=== PATIENT | female | born 1950 | race Caucasian/White ===

== ENCOUNTER → 2022-08-19 09:15 | Outpatient (BNVA) | payer MEDICARE, SELFPAY | PROVIDERS: PCP Internal Medicine; Visit Provider Hospitalist | DX: R05.3 Chronic cough (principal); J84.9 Interstitial pulmonary disease, unspecified; R91.1 Solitary pulmonary nodule; J44.9 Chronic obstructive pulmonary disease, unspecified | CPT/HCPCS: 99202 ==

== ENCOUNTER 2022-08-31 10:13 | Outpatient (REF) | payer MEDICARE, SELFPAY ==
--- NOTE | ~2022-08-31 | CT_ITS ---
EXAMINATION: CT CHEST WITHOUT CONTRAST CLINICAL INFORMATION: Interstitial lung disease COMPARISON: None TECHNIQUE: Multidetector volumetric CT imaging of the chest was done. Axial MIP volume rendering provided. Sagittal and coronal reformatted images were obtained. This CT examination was performed using dose optimization techniques as appropriate, variously including the following: *Automated exposure control *Adjustment of mA and/or kV according to patient size (this includes techniques or standardized protocols for targeted exams where dose is matched to indication/reason for exam; i.e. extremities or head) *Use of iterative reconstruction technique DLP: 169 mGy-cm FINDINGS: LUNGS: There are increased peripheral or subpleural reticular markings and attenuation at the lung bases. There is mild traction bronchiolectasis. There is a 2 mm right upper lobe nodule axial image 48 series 13. There is a 3 mm peripheral or subpleural right upper lobe nodule adjacent to the minor fissure axial image 82 series 13. There is a 2 mm right middle lobe nodule axial image 100 series 13. There is a 3 mm peripheral or subpleural left lower lobe nodule axial image 121 series 13 MEDIASTINUM: The mediastinum is normal. CORONARY ARTERY CALCIFICATION: Moderate PLEURA: There is no pleural effusion. No pleural mass or thickening. AXILLA: No lymphadenopathy. UPPER ABDOMEN: Unremarkable. OSSEOUS STRUCTURES: There are degenerative changes of the spine. There are postsurgical changes to the left shoulder. CT/CT chest wo IV con IMPRESSION: 1. Mild interstitial lung disease. Small pulmonary nodules or micronodules, largest measuring 3 mm. Moderate coronary artery calcification. Fleischner guidelines were followed.
== END 2022-08-31 10:14 | disposition home or self-care (01) ==
LOC: HO.CT 10:13
PROVIDERS: PCP Student in an Organized Health Care Education/Training Program; Visit Provider Hospitalist
DX: R91.1 Solitary pulmonary nodule (principal); R05.3 Chronic cough; J84.9 Interstitial pulmonary disease, unspecified
CPT/HCPCS: 71250

== ENCOUNTER 2022-09-14 08:43 | Outpatient (REF) | payer MEDICARE, SELFPAY ==
--- NOTE | 2022-09-14 10:01 | PFT_ITS ---
INDICATION: Interstitial lung disease. SPIROMETRY: The FEV1 to FVC 90% with an FEV1 of 1.96 L which is 75% predicted, an FVC of 1.76 L which is 90% predicted. No significant response to bronchodilators noted. Maximum voluntary ventilation 96% predicted. LUNG VOLUMES: Total lung capacity 79% predicted. DIFFUSION CAPACITY: DLCO 56% predicted. COMPARISONS: None. INTERPRETATION: No obstructive ventilatory defect. No significant response to bronchodilators noted and normal maximum voluntary ventilation. The patient does have a restrictive ventilatory defect consistent with mild restrictive lung disease, likely secondary to the history of interstitial lung disease. In addition to that, there is a moderate diffusion impairment secondary to the underlying restriction. Clinical correlation is warranted. Aidan Evans MD MR/MODL / [id number]
== END 2022-09-14 08:44 | disposition home or self-care (01) ==
LOC: HO.RESP 08:43
PROVIDERS: PCP Student in an Organized Health Care Education/Training Program; Visit Provider Hospitalist
DX: J84.9 Interstitial pulmonary disease, unspecified (principal); R91.1 Solitary pulmonary nodule; R05.3 Chronic cough
CPT/HCPCS: 94060; 94727; 94729

== ENCOUNTER → 2022-09-30 09:12 | Outpatient (BNVA) | payer MEDICARE, SELFPAY | PROVIDERS: PCP Student in an Organized Health Care Education/Training Program; Visit Provider Hospitalist | DX: J84.9 Interstitial pulmonary disease, unspecified (principal); R91.1 Solitary pulmonary nodule; R05.3 Chronic cough | CPT/HCPCS: 99212 ==

== ENCOUNTER 2023-01-13 10:13 | Outpatient (REF) | payer MEDICARE, SELFPAY ==
--- NOTE | ~2023-01-13 | FL_ITS ---
EXAMINATION: FL BARIUM SWALLOW CLINICAL INFORMATION: K21.9 - Gastro-esophageal reflux disease without esophagitis COMPARISON: CT chest noncontrast 08/31/2022 TECHNIQUE: Barium swallow examination is performed using fluoroscopic evaluation in addition to multiple fluoroscopic spot views, including cine images during swallowing. The patient is imaged both upright and prone and using both thick and thin sulfate along with effervescent granules. Barium pill challenge also performed. Fluoroscopy time: 1.1 minutes DAP: 7.06 Gycm2 Images: 30 FINDINGS: Swallowing function is normal and there is no aspiration. The cervical esophagus has no web or diverticulum or stricture. The cervical thoracic junction appears normal. The thoracic esophagus shows normal motility with no obstruction, stricture, or ulceration. There is no hiatal hernia or reflux seen despite use of provocative maneuvers (prone Valsalva and water siphon test, respectively). A cursory view of the upper abdomen shows no gastric outlet obstruction. FL/FL barium swallow IMPRESSION: Normal study.
== END 2023-01-13 10:14 | disposition home or self-care (01) ==
LOC: HO.XRAY 10:13
PROVIDERS: PCP Student in an Organized Health Care Education/Training Program; Visit Provider Hospitalist
DX: K21.9 Gastro-esophageal reflux disease without esophagitis (principal); J84.9 Interstitial pulmonary disease, unspecified
CPT/HCPCS: 74220

== ENCOUNTER 2023-04-27 09:28 | Outpatient (REF) | payer MEDICARE, SELFPAY ==
--- NOTE | ~2023-04-27 | XR_ITS ---
EXAMINATION: XR CHEST 2 VIEWS CLINICAL INFORMATION: Cough. COMPARISON: Report of the chest radiographs dated 06/07/2015; CT chest dated 08/31/2022. TECHNIQUE: Frontal and lateral views of the chest were obtained. FINDINGS: The heart, great vessels, pulmonary vasculature and mediastinum are normal. There are again coronary artery atherosclerotic calcifications. The lungs show no focal infiltrate, effusion or pneumothorax. There is no acute osseous abnormality. There is multi-level thoracolumbar spondylosis. Orthopedic anchors are applied to the left humeral head. XR/XR chest 2V IMPRESSION: No focal infiltrate or congestive heart failure is seen.
[2023-04-27 10:52] LABS: MANUAL DIFF FLAG NO
[2023-04-27 11:27] LABS: Basophils Absolute Auto 0.1 X10*3/uL (0.0-0.2); Basophils Percent Auto 0.7 % (0-2); Eosinophils Absolute Auto 0.2 X10*3/uL (0.0-0.4); Eosinophils Percent Auto 2.2 % (0-4); Hematocrit 39.7 % (37.0-47.0); Hemoglobin 13.3 g/dl (12.0-16.0); Imm Gran Abs Auto 0.04 X10*3/uL (0.00-0.03); Imm Gran Pct Auto 0.5 % (0.0-0.4); Lymphocytes Percent Auto 24.7 % (20-40); Mean Corpuscular HGB Conc 33.5 g/dl (31.0-35.0); Mean Corpuscular Hemoglobin 30.2 pg (27.0-33.0); Mean Platelet Volume 10.2 fL (9.4-12.3); Monocytes Absolute Auto 0.9 X10*3/uL (0.1-1.2); Monocytes Percent Auto 10.8 % (2-11); Neutrophils Percent Auto 61.1 % (45-73); Platelet Count 190 X10*3/uL (160-400); Red Blood Count 4.41 X10*6/uL (4.20-5.50); Red Cell Distribution Width 12.5 % (11.0-16.0); White Blood Count 8.2 X10*3/uL (4.8-10.8)
[2023-04-27 12:08] LABS: Erythrocyte Sedimentation Rate 16 MM/HR (0-20)
[2023-04-27 12:09] LABS: Anion Gap 13 (12-20); Blood Urea Nitrogen 16 mg/dL (9-16); Calcium 9.5 mg/dL (8.4-10.2); Carbon Dioxide 26 mmol/L (22-29); Chloride 99 mmol/L (96-108); Estimated Glomerular Filt Rate > 60; Glucose Random 159 mg/dL (60-115); Potassium 3.6 mmol/L (3.3-5.1); Sodium 134 mmol/L (135-145)
[2023-04-29 06:33] LABS: Immunoglobulin E 287 kU/L (<OR=114)
[2023-04-30 07:04] LABS: Anti Nuclear Antibody Screen NEGATIVE (NEGATIVE)
[2023-04-30 12:29] LABS: Cyclic Citrullinated Peptide <16 UNITS
[2023-05-07 18:03] LABS: Asperg fumigatus Precip Abs NEGATIVE (NEGATIVE); Micropoly faeni Abs NEGATIVE (NEGATIVE); Pigeon serum Abs NEGATIVE (NEGATIVE); Saccharo pora viridis Abs NEGATIVE (NEGATIVE); Thermo candidus Abs NEGATIVE (NEGATIVE); Thermoa vulgaris #1 NEGATIVE (NEGATIVE)
== END 2023-04-27 09:29 | disposition home or self-care (01) ==
LOC: HO.LAB 09:28
PROVIDERS: PCP Student in an Organized Health Care Education/Training Program; Visit Provider Hospitalist
DX: R05.3 Chronic cough (principal); J84.9 Interstitial pulmonary disease, unspecified; R91.1 Solitary pulmonary nodule; R91.8 Other nonspecific abnormal finding of lung field
CPT/HCPCS: 36415; 71046; 80048; 82164; 82785; 85025; 85652; 86038; 86200; 86331; 86606; 86609; 99212

== ENCOUNTER 2023-09-01 09:12 | Outpatient (AMB) | payer MEDICARE, SELFPAY ==
[2023-09-01 09:18] VITALS: BP 128/64; PULSE 70; O2SAT 97; BMI 32.0
--- NOTE | 2023-09-01 09:18 | MHC.OFFVIS ---
Intake Vital Signs 09/01/23 09:18 Height 5 ft 2 in Weight 175 lb BMI 32.0 BP 128/64 Blood Pressure Location Lt brachial Position Sitting Pulse 70 Pulse Source Pulse Oximeter Pulse Oximetry (%) 97 Oxygen Delivery Method Room Air Intake Visit Reasons: CT Chest [employer] Required: No Allergies nystatin [From Mycostatin] Allergy (Severe, Verified 09/01/23 09:21) Rash acetaminophen [From TYLOX] Allergy (Intermediate, Unverified 09/01/23 09:21) RASH lisinopril [LISINOPRIL] Allergy (Intermediate, Unverified 09/01/23 09:21) RASH HPI HPI Comments History of Present Illness Details The patient is a 73-year-old woman with a known history of cough who apparently was being evaluated for an adnexal density. While a [facility] she did undergo a CT scan of the abdomen and pelvis which demonstrated underlying areas of parenchymal disease and pulmonary fibrosis. Patient also has evidence of atelectasis. Some of the areas colitis in 2 nodular densities. The lung cuts of the CT scan of the abdomen were limited. The patient needs a formal CT scan of the chest to better address underlying findings and symptoms. On further questioning the patient denies any exposure to any significant fumes or toxins. She has been exposed to cleaning chemicals in the past. She denies any pets or any birds in the household. Denies any exposure to any mold or any farms. the patient does like to garden. 09/30/2022 the patient is here for a pulmonary follow-up visit. Overall the patient is doing well from a respiratory status. She has found that the rescue inhaler is effective in helping her cough. She also noticed that her nasal drip is improved with the nasal spray. She still has episodes of coughing specially if she is exposed to chemicals or cleaning agents. She is wondering if asked to do with that. She also has reflux disease. Medication, Protonix does control her symptoms. We did review her CT scan of the chest demonstrating interstitial changes at the bases with some traction bronchiectasis. She also has small subcentimeter pulmonary nodules that will need to be followed. The patient does have significant calcifications of the coronary arteries but she is being followed by Cardiology. we also looked at her PFTs consistent with a restrictive lung disease. The patient is wondering why this is the case as far as the interstitial lung disease. At this point will go ahead and request blood work to assess for any inflammatory or hypersensitivity reactions. In addition to that the patient follow a strict reflux diet and will have a barium swallow to further address the possibility of aspiration pneumonitis. 04/27/2023 the patient is here for a pulmonary follow-up visit. The patient overall feels about the same. Still complaining of dyspnea on exertion. Moderate in severity. Primarily when going up a flight of stairs of our help. She usually needs to stop and rest is hard for her to speak in full sentences. As far as her workup she was supposed to have blood work but she has not done as of yet. She is going to have it today. Patient did undergo a barium swallow without any evidence of any reflux disease to suggest aspiration pneumonitis as flat before. We did again review her CT scan of the chest demonstrating some bibasilar fibrotic changes. Explained to the patient that the blood work will try to identify this inflammatory process related to the fibrotic changes. Although sometimes he can have the fibrotic changes which may progress without any evidence of inflammation. Therefore, will have her get an x-ray and see how she is doing the patient did have a brief walking oximetry in the office and she does not qualify for oxygen which is reassuring. She does need to increase her exercise activity however she needs to also monitor heart rate closely. If her chest x-rays reasonable then will go ahead and plan to follow-up in 4-[address] scan of the chest. 09/01/2023 the patient is here for a pulmonary follow-up visit. She is still complaining of dyspnea on exertion. [id number] severity. Mainly going up flight of stairs or a hill. The patient did have a repeat chest x-ray which was reassuring. Her last CT scan of the chest was back in August 2022. She does have a pulmonary nodule in addition to the interstitial lung disease. Will go ahead and request a CT scan of the chest in a couple months after she completes her 8 week pulmonary rehabilitation program that she is about to start. I am hopeful that she can work on deep breathing in minimize the amount of atelectasis. She is monitoring closely reflux since sleeping with a wedge pillow which is also helping. Again we did review the blood work without any evidence of any secondary causes for interstitial lung disease. I am hopeful that the degree of pulmonary fibrosis has not progress and therefore no further interventions warranted. Will plan to repeat PFTs next year. If however her CT scans worse with worsening interstitial lung disease to suggest a progressive fibrotic process then will make her an appointment to follow-up sooner in order to talk about antifibrotic agents and potential other interventions. [facility] Medical History (Updated 09/30/22 @ 21:15 by Aidan Evans MD) Pulmonary nodule ILD (interstitial lung disease) Chronic cough Social History (Updated 08/19/22 @ 09:41 by MARZENA Verde) Patient Tobacco Use Status: Former Tobacco user Tobacco use type: Cigarette Years Smoked: 2 Years Review of Systems Const Denies fatigue and Denies fever(s) Eyes Denies change in vision ENT Denies change in voice Card Denies chest pain, Denies dyspnea and Reports dyspnea on exertion Resp Reports cough, Denies dyspnea, Reports dyspnea on exertion and Denies wheezing GI Reports no additional complaints Musc Reports no additional complaints Skin/Breast Denies rash Neuro Reports no additional complaints Endo Denies fatigue Bhavik/Lymph Denies easy bleeding and Denies easy bruising Aller/Immun Denies wheezing Physical Exam Vital Signs: Last Vital Signs Pulse 70 09/01/23 09:18 BP 128/64 09/01/23 09:18 Pulse Ox 97 09/01/23 09:18 Oxygen Delivery Method Room Air 09/01/23 09:18 BMI result Body Mass Index 32.0 Const General: comfortable Orientation/consciousness: patient oriented x3 HEENT Head: Yes normal to inspection Eyes General: appearance normal, both eyes and all related structures Neck Neck: Yes supple Chest Chest palpation & inspection: normal inspection of the chest Resp Effort & Inspection: normal respiratory effort Auscultation: rales bilateral at the base and diminished lung sounds Cardio Rate: regular rate Rhythm: regular rhythm Heart sounds: S1 normal heart sound present and S2 normal heart sound present GI Auscultation: normal bowel sounds Skin General skin exam: no rashes or lesions noted Neuro General: patient oriented x3 Extrem General: Yes no clubbing, cyanosis or edema Assessment & Plan Assessment & Plan (1) Chronic cough: Code(s): R05.3 - Chronic cough (2) ILD (interstitial lung disease): Comment: evidence of pulmonary fibrosis bibasilar distribution Code(s): J84.9 - Interstitial pulmonary disease, unspecified (3) Pulmonary nodule: Code(s): R91.1 - Solitary pulmonary nodule Plan continue ipratropium nasal spray for vasomotor rhinitis resulting in a upper airway cough syndrome continue short-acting beta agonist as needed for cough reflux diet continue PPI CT scan of the chest in 2 months PFTs in 1 yr follow-up in [address] chest is worse Orders: Orders PFT pulmonary function test 08/31/24 J84.9 - Interstitial pulmonary disease, unspecified CT chest wo IV con 2 Months R91.1 - Solitary pulmonary nodule Coding Level of Care Code Est Pt Level 4 (09229) Diagnoses Chronic cough R05.3 ILD (interstitial lung disease) J84.9 Pulmonary nodule R91.1 Time Spent (min) 18
== END 2023-09-01 09:46 | disposition home or self-care (01) ==
PROVIDERS: PCP Student in an Organized Health Care Education/Training Program; Visit Provider Hospitalist
DX: R05.3 Chronic cough (principal); J84.9 Interstitial pulmonary disease, unspecified; R91.1 Solitary pulmonary nodule
CPT/HCPCS: 99214

== ENCOUNTER → 2023-09-01 09:12 | Outpatient (BNVA) | payer MEDICARE, SELFPAY | PROVIDERS: PCP Student in an Organized Health Care Education/Training Program; Visit Provider Hospitalist | DX: J84.9 Interstitial pulmonary disease, unspecified (principal); R91.1 Solitary pulmonary nodule; R05.3 Chronic cough | CPT/HCPCS: 99212 ==

== ENCOUNTER 2023-09-21 10:00 | Outpatient (RCR) | payer MEDICARE, SELFPAY | END 2023-10-29 08:25 | disposition home or self-care (01) | LOC: HO.PR 10:00 | PROVIDERS: PCP Student in an Organized Health Care Education/Training Program; Visit Provider Hospitalist | DX: J84.10 Pulmonary fibrosis, unspecified (principal) | CPT/HCPCS: 94625; 94761; 99215 ==

== ENCOUNTER 2023-12-07 15:54 | Outpatient (REF) | payer MEDICARE, SELFPAY ==
--- NOTE | ~2023-12-07 | CT_ITS ---
EXAMINATION: CT CHEST WITHOUT CONTRAST CLINICAL INFORMATION: Pulmonary nodule. COMPARISON: CT chest 08/31/2022. TECHNIQUE: Multidetector volumetric CT imaging of the chest was done. Axial MIP volume rendering provided. Sagittal and coronal reformatted images were obtained. This CT examination was performed using dose optimization techniques as appropriate, variously including the following: *Automated exposure control *Adjustment of mA and/or kV according to patient size (this includes techniques or standardized protocols for targeted exams where dose is matched to indication/reason for exam; i.e. extremities or head) *Use of iterative reconstruction technique DLP: 153 mGy-cm FINDINGS: LUNGS: Peripheral bibasilar interstitial lung abnormality with reticulation and ground-glass attenuation is slightly decreased. Minimal cylindrical bronchiectasis are redemonstrated. Mild scattered intrabronchial mucous secretions are again noted. No consolidation. Central airways are patent. A few pulmonary nodules are not significantly changed, for example (series 8): 1. 0.3 cm nodule in the anteromedial inferior right upper lobe, image 242. 2. Elongated 0.7 x 0.2 cm nodule adjacent to the right minor fissure, image 247. 3. Faint, approximately 0.5 cm ground-glass nodule in the left upper lobe, image 205. 4. Triangular-shaped perifissural nodule, measuring up to 0.6 cm, along the right minor fissure, image 276, most likely representing a lymph node. 5. 0.2 cm pleural-based nodule in the lateral left lower lobe, image 358. 6. 0.3 cm nodule in the right lung base, image 369. MEDIASTINUM: Normal heart size. No pericardial effusion. A few prominent mediastinal lymph nodes are not significantly changed, for example: A 0.9 cm short-axis lower anterior pretracheal lymph node (3:19). Normal appearance of the thyroid gland. CORONARY ARTERY CALCIFICATION: Severe multivessel coronary artery calcifications. PLEURA: No pleural effusion or pneumothorax. AXILLA: No lymphadenopathy. UPPER ABDOMEN: Unremarkable. OSSEOUS STRUCTURES: Thoracic spondylosis. Partially imaged left humeral head surgical anchors. No acute or aggressive-appearing osseous findings. CT/CT chest wo IV con IMPRESSION: 1. Pulmonary nodules are not significantly changed since 08/31/2022, largest measuring up to 0.7 cm in the right upper lobe adjacent to the minor fissure. 2. Slightly decreased pleural-based bibasilar interstitial lung abnormality with a combination of ground-glass and reticulation. 3. Mild bronchiectasis, bronchial wall thickening, and scattered mucus plugging without significant change. 4. Severe multivessel coronary artery calcifications. According to the UPDATED 2017 Fleischner Society recommendations, the advised follow-up imaging for multiple solid nodules measuring up to 6-8 mm is follow-up CT at 3 to 6 months. In high-risk patients, subsequent CT follow-up at 18 to 24 months is recommended. In low-risk patients, subsequent CT follow-up at 18 to 24 months is optional. Fleischner guidelines were followed.
== END 2023-12-07 15:55 | disposition home or self-care (01) ==
LOC: HO.CT 15:54
PROVIDERS: PCP Student in an Organized Health Care Education/Training Program; Visit Provider Hospitalist
DX: R91.1 Solitary pulmonary nodule (principal)
CPT/HCPCS: 71250

== ENCOUNTER 2024-04-19 08:34 | Outpatient (REF) | payer MEDICARE, SELFPAY ==
[2024-04-19 10:16] LABS: Erythrocyte Sedimentation Rate 13 MM/HR (0-20)
[2024-04-19 10:20] LABS: Anion Gap 12 (12-20); Blood Urea Nitrogen 12 mg/dL (9-16); Carbon Dioxide 28 mmol/L (22-29); Chloride 101 mmol/L (96-108); Estimated Glomerular Filt Rate > 60; Glucose Random 178 mg/dL (60-115); Potassium 4.1 mmol/L (3.3-5.1); Sodium 137 mmol/L (135-145)
[2024-04-20 19:02] LABS: Lyme Abs Screen <0.90 index
== END 2024-04-19 08:35 | disposition home or self-care (01) ==
LOC: HO.LAB 08:34
PROVIDERS: PCP Student in an Organized Health Care Education/Training Program; Visit Provider Psychiatry & Neurology Neurology
DX: G50.0 Trigeminal neuralgia (principal)
CPT/HCPCS: 36415; 80048; 85652; 86617; 86618

== ENCOUNTER 2024-05-30 09:37 | Outpatient (REF) | payer MEDICARE, SELFPAY ==
--- NOTE | ~2024-05-30 | MR_ITS ---
EXAMINATION: MR BRAIN WITHOUT AND WITH CONTRAST CLINICAL INFORMATION: Trigeminal neuralgia, left COMPARISON: CT head on 09/09/2018 TECHNIQUE: Multiplanar, multisequence MRI of the brain was obtained before and after the intravenous administration of 8 mL Gadavist. FINDINGS: Motion artifact is present. The cavernous sinuses are normal bilaterally. The Meckel's cave are normal. The cisternal and caval segments of the trigeminal nerves appear normal. No abnormal enhancement or mass effect. The internal auditory canals are normal bilaterally. The hypoglossal canal and jugular foramen are normal bilaterally. The basilar cisterns are unremarkable. No suspicious extra-axial enhancement. No acute intracranial hemorrhage or infarct. Scattered and confluent periventricular and deep white matter T2/FLAIR hyperintensities, nonspecific however commonly seen with small vessel ischemic disease. Diffuse prominence of the sulci with associated mild ex vacuo dilation of the ventricles compatible with global cerebral atrophy. No suspicious intra-axial enhancement. No midline shift or hydrocephalus. No extra-axial fluid collection. The osseous structures are unremarkable. The pituitary, pineal gland, and remaining midline structures are unremarkable. No orbital pathology. The paranasal sinuses and mastoid air cells are clear. MR/MR head/brain wo/w con IMPRESSION: -No MRI findings to explain trigeminal neuralgia. -Global cerebral atrophy and small vessel ischemic changes.
[2024-05-30] MEDS: gadobutroL 10 ML VIAL IVPUSH (10:54)
[2024-06-13] MEDS: gadobutroL 10 ML VIAL IVPUSH (13:32)
== END 2024-05-30 09:38 | disposition home or self-care (01) ==
LOC: HO.MRI 09:37
PROVIDERS: PCP Student in an Organized Health Care Education/Training Program; Visit Provider Psychiatry & Neurology Neurology
DX: G50.0 Trigeminal neuralgia (principal)
CPT/HCPCS: 70553; A9585

== ENCOUNTER 2024-09-04 09:55 | Outpatient (AMB) | payer MEDICARE, SELFPAY ==
[2024-09-04 09:59] VITALS: BP 126/70; PULSE 71; O2SAT 98; BMI 30.2
--- NOTE | 2024-09-04 09:59 | A.OFFVIS_ITS ---
Vital Signs 09/04/24 09:59 Height 5 ft 2 in Weight 165 lb BMI 30.2 BP 126/70 Blood Pressure Location Lt brachial Position Sitting Pulse 71 Pulse Source Pulse Oximeter Pulse Oximetry (%) 98 Oxygen Delivery Method Room Air Intake Visit Reasons: ILD Medical Writer Required: No Allergies nystatin [From Mycostatin] Allergy (Severe, Verified 09/04/24 10:00) Rash acetaminophen [From TYLOX] Allergy (Intermediate, Unverified 09/04/24 10:00) RASH lisinopril [LISINOPRIL] Allergy (Intermediate, Unverified 09/04/24 10:00) RASH HPI Comments Details: The patient is a 74-year-old woman with a known history of cough who apparently was being evaluated for an adnexal density. While a [facility] she did undergo a CT scan of the abdomen and pelvis which demonstrated underlying areas of parenchymal disease and pulmonary fibrosis. Patient also has evidence of atelectasis. Some of the areas colitis in 2 nodular densities. The lung cuts of the CT scan of the abdomen were limited. The patient needs a formal CT scan of the chest to better address underlying findings and symptoms. On further questioning the patient denies any exposure to any significant fumes or toxins. She has been exposed to cleaning chemicals in the past. She denies any pets or any birds in the household. Denies any exposure to any mold or any farms. the patient does like to garden. 09/30/2022 the patient is here for a pulmonary follow-up visit. Overall the patient is doing well from a respiratory status. She has found that the rescue inhaler is effective in helping her cough. She also noticed that her nasal drip is improved with the nasal spray. She still has episodes of coughing specially if she is exposed to chemicals or cleaning agents. She is wondering if asked to do with that. She also has reflux disease. Medication, Protonix does control her symptoms. We did review her CT scan of the chest demonstrating interstitial changes at the bases with some traction bronchiectasis. She also has small subcentimeter pulmonary nodules that will need to be followed. The patient does have significant calcifications of the coronary arteries but she is being followed by Cardiology. we also looked at her PFTs consistent with a restrictive lung disease. The patient is wondering why this is the case as far as the interstitial lung disease. At this point will go ahead and request blood work to assess for any inflammatory or hypersensitivity reactions. In addition to that the patient follow a strict reflux diet and will have a barium swallow to further address the possibility of aspiration pneumonitis. 04/27/2023 the patient is here for a pulmonary follow-up visit. The patient overall feels about the same. Still complaining of dyspnea on exertion. Moderate in severity. Primarily when going up a flight of stairs of our help. She usually needs to stop and rest is hard for her to speak in full sentences. As far as her workup she was supposed to have blood work but she has not done as of yet. She is going to have it today. Patient did undergo a barium swallow without any evidence of any reflux disease to suggest aspiration pneumonitis as flat before. We did again review her CT scan of the chest demonstrating some bibasilar fibrotic changes. Explained to the patient that the blood work will try to identify this inflammatory process related to the fibrotic changes. Although sometimes he can have the fibrotic changes which may progress without any evidence of inflammation. Therefore, will have her get an x-ray and see how she is doing the patient did have a brief walking oximetry in the office and she does not qualify for oxygen which is reassuring. She does need to increase her exercise activity however she needs to also monitor heart rate closely. If her chest x-rays reasonable then will go ahead and plan to follow-up in 4-[address] scan of the chest. 09/01/2023 the patient is here for a pulmonary follow-up visit. She is still complaining of dyspnea on exertion. Gdwz-ox-ybfechfq severity. Mainly going up flight of stairs or a hill. The patient did have a repeat chest x-ray which was reassuring. Her last CT scan of the chest was back in August 2022. She does have a pulmonary nodule in addition to the interstitial lung disease. Will go ahead and request a CT scan of the chest in a couple months after she completes her 8 week pulmonary rehabilitation program that she is about to start. I am hopeful that she can work on deep breathing in minimize the amount of atelectasis. She is monitoring closely reflux since sleeping with a wedge pillow which is also helping. Again we did review the blood work without any evidence of any secondary causes for interstitial lung disease. I am hopeful that the degree of pulmonary fibrosis has not progress and therefore no further interventions warranted. Will plan to repeat PFTs next year. If however her CT scans worse with worsening interstitial lung disease to suggest a progressive fibrotic process then will make her an appointment to follow-up sooner in order to talk about antifibrotic agents and potential other interventions. 09/04/2024 the patient is here for a pulmonary follow-up visit. Overall she is doing well. Shortness breath is better. She did have her PFTs since it was rescheduled and at this point I do not believe she needs it right now. She did have a CT scan of the chest in 12/04/2023 which I personally reviewed with her. Appears to have stable pulmonary nodules now for couple years which is reassuring. The interstitial lung disease also settle which is reassuring. She does have significant calcifications of the coronary arteries. She is c oncerned about the MRI of her brain. She is going to talk to her neurologist. She does have nonspecific changes. I did give her a copy of the results. In the meantime the patient continues to complain about intermittent cough. Usually nonproductive in nature and usually a scratchy throat. I will give her a prescription for benzo nights. She can use it with a GoodRx card. She will follow-up in a year with PFTs. [facility] Medical History (Updated 09/04/24 @ 20:41 by Aidan Evans MD) Pulmonary nodule ILD (interstitial lung disease) Chronic cough Social History (Updated 08/19/22 @ 09:41 by MARZENA Verde) Patient Tobacco Use Status: Former Tobacco user Tobacco use type: Cigarette Years Smoked: 2 Years Review of Systems Const Denies fatigue and Denies fever(s) Eyes Denies change in vision ENT Denies change in voice Card Denies chest pain, Denies dyspnea and Reports dyspnea on exertion Resp Reports cough, Denies dyspnea, Reports dyspnea on exertion and Denies wheezing GI Reports no additional complaints Musc Reports no additional complaints Skin/Breast Denies rash Neuro Reports no additional complaints Endo Denies fatigue Bhavik/Lymph Denies easy bleeding and Denies easy bruising Aller/Immun Denies wheezing Physical Exam Vital Signs: Last Vital Signs Pulse 71 09/04/24 09:59 BP 126/70 09/04/24 09:59 Pulse Ox 98 09/04/24 09:59 Oxygen Delivery Method Room Air 09/04/24 09:59 BMI result Body Mass Index 30.2 Const General: comfortable Orientation/consciousness: patient oriented x3 HEENT Head: Yes normal to inspection Eyes General: appearance normal, both eyes and all related structures Neck Neck: Yes supple Chest Chest palpation & inspection: normal inspection of the chest Resp Effort & Inspection: normal respiratory effort Auscultation: no rales and diminished lung sounds Cardio Rate: regular rate Rhythm: regular rhythm Heart sounds: S1 normal heart sound present and S2 normal heart sound present GI Auscultation: normal bowel sounds Skin General skin exam: no rashes or lesions noted Neuro General: patient oriented x3 Extrem General: Yes no clubbing, cyanosis or edema Results Reviewed Results Reviewed: [address] [address] [address] Scan Report Signed Patient: Sparkle Rose MR#: [id number] : 1950 Acct:[id number] Age/Sex: 73 / F ADM Date: 12/07/23 Loc: HO.CT Attending Dr: Aidan Evans MD Ordering Physician: Aidan Evans MD Date of Service: 12/07/23 Procedure(s): CT chest wo IV con Accession Number(s): [id number] cc: Vadim Kc DO; Aidan Evans MD~ EXAMINATION: CT CHEST WITHOUT CONTRAST CLINICAL INFORMATION: Pulmonary nodule. COMPARISON: CT chest 08/31/2022. TECHNIQUE: Multidetector volumetric CT imaging of the chest was done. Axial MIP volume rendering provided. Sagittal and coronal reformatted images were obtained. This CT examination was performed using dose optimization techniques as appropriate, variously including the following: *Automated exposure control *Adjustment of mA and/or kV according to patient size (this includes techniques or standardized protocols for targeted exams where dose is matched to indication/reason for exam; i.e. extremities or head) *Use of iterative reconstruction technique DLP: 153 mGy-cm FINDINGS: LUNGS: Peripheral bibasilar interstitial lung abnormality with reticulation and ground-glass attenuation is slightly decreased. Minimal cylindrical bronchiectasis are redemonstrated. Mild scattered intrabronchial mucous secretions are again noted. No consolidation. Central airways are patent. A few pulmonary nodules are not significantly changed, for example (series 8): 1. 0.3 cm nodule in the anteromedial inferior right upper lobe, image 242. 2. Elongated 0.7 x 0.2 cm nodule adjacent to the right minor fissure, image 247. 3. Faint, approximately 0.5 cm ground-glass nodule in the left upper lobe, image 205. 4. Triangular-shaped perifissural nodule, measuring up to 0.6 cm, along the right minor fissure, image 276, most likely representing a lymph node. 5. 0.2 cm pleural-based nodule in the lateral left lower lobe, image 358. 6. 0.3 cm nodule in the right lung base, image 369. MEDIASTINUM: Normal heart size. No pericardial effusion. A few prominent mediastinal lymph nodes are not significantly changed, for example: A 0.9 cm short-axis lower anterior pretracheal lymph node (3:19). Normal appearance of the thyroid gland. CORONARY ARTERY CALCIFICATION: Severe multivessel coronary artery calcifications. PLEURA: No pleural effusion or pneumothorax. AXILLA: No lymphadenopathy. UPPER ABDOMEN: Unremarkable. OSSEOUS STRUCTURES: Thoracic spondylosis. Partially imaged left humeral head surgical anchors. No acute or aggressive-appearing osseous findings. CT/CT chest wo IV con IMPRESSION: 1. Pulmonary nodules are not significantly changed since 08/31/2022, largest measuring up to 0.7 cm in the right upper lobe adjacent to the minor fissure. 2. Slightly decreased pleural-based bibasilar interstitial lung abnormality with a combination of ground-glass and reticulation. 3. Mild bronchiectasis, bronchial wall thickening, and scattered mucus plugging without significant change. 4. Severe multivessel coronary artery calcifications. According to the UPDATED 2017 Fleischner Society recommendations, the advised follow-up imaging for multiple solid nodules measuring up to 6-8 mm is follow-up CT at 3 to 6 months. In high-risk patients, subsequent CT follow-up at 18 to 24 months is recommended. In low-risk patients, subsequent CT follow-up at 18 to 24 months is optional. Fleischner guidelines were followed. Dictated By: Debbie Whittington Signed By: <Electronically signed by Debbie Whittington in OV> 12/10/23 1311 DD/ 1618 TD/TT: Human Geography Instructor: Assessment & Plan Assessment & Plan (1) Chronic cough: Code(s): R05.3 - Chronic cough Category: Medical (2) ILD (interstitial lung disease): Comment: evidence of pulmonary fibrosis bibasilar distribution, better Code(s): J84.9 - Interstitial pulmonary disease, unspecified Category: Medical (3) Pulmonary nodule: Code(s): R91.1 - Solitary pulmonary nodule Category: Medical Plan continue ipratropium nasal spray for vasomotor rhinitis resulting in a upper airway cough syndrome continue short-acting beta agonist as needed for cough reflux diet benzonates as needed continue PPI PFTs in 1 yr nodules have been stable 2021 to 2023 follow-up in 1 yr Orders: Orders PFT pulmonary function test 11 Months J84.9 - Interstitial pulmonary disease, unspecified Medications: New benzonatate 200 mg PO BID 30 days PRN 30 caps 0RF cough Coding Level of Care Code Est Pt Level 4 (76153) Diagnoses Chronic cough R05.3 ILD (interstitial lung disease) J84.9 Pulmonary nodule R91.1 Time Spent (min) 17
== END 2024-09-04 10:19 | disposition home or self-care (01) ==
PROVIDERS: PCP Family Medicine; Visit Provider Hospitalist
DX: R05.3 Chronic cough (principal); J84.9 Interstitial pulmonary disease, unspecified; R91.1 Solitary pulmonary nodule
CPT/HCPCS: 99214

== ENCOUNTER → 2024-09-04 09:55 | Outpatient (BNVA) | payer MEDICARE, SELFPAY | PROVIDERS: PCP Student in an Organized Health Care Education/Training Program; Visit Provider Hospitalist | DX: J84.9 Interstitial pulmonary disease, unspecified (principal); R05.3 Chronic cough; R91.1 Solitary pulmonary nodule | CPT/HCPCS: 99212 ==

== ENCOUNTER 2025-03-02 11:02 | Outpatient (REF) | payer MEDICARE, SELFPAY ==
--- OUTSIDE RECORDS SUMMARY | 2025-03-02 12:08 | XMS_ITS | Patient Health Record ---
Author Organization [facility] Address [address] [place] [address] Care Team Providers Care Mri Specialist Name Role Phone FRANKLIN BARKSDALE, VICTOR HUGO Primary Care Provider hSelbie Benítez Unavailable [phone] Allergies Allergen (clinical drug ingredient) Drug/Non Drug Allergy documented on EMR Reaction Allergy Type Onset Date Status MYCOSTATIN Swelling Drug Allergy Active Novocain Unknown Drug Allergy Active TYLOX Skin Rash Drug Allergy Active lisinopril Lisinopril Unknown Drug Allergy Activ e nystatin Nystatin Unknown Drug Allergy Active Results Component Value Reference Range Notes [id number] IGP No Culture 30 Plus (Not yet reviewed by provider) Interpretation: Performing Lab:[facility] [place], [address], [address], [place], Phone - [phone], Director - [facility] Notes/Report: Clinical Information:Vaginal/Cervical, LMP: Men o, Hx of Positive HPV, HPV Genotype Source.............Cervix;Vagina Dates / Results....03/04/23 NIL, +HPV, +16 Other..............Post Menopausal No. of containers..01 ThinPrep Vial Clinical Information:Vaginal/Cervical, LMP: Men o, Hx of Positive HPV, HPV Genotype Source.............Cervix;Vagina Dates / Results....03/04/23 NIL, +HPV, +16 Other..............Post Menopausal No. of containers..01 ThinPrep Vial DIAGNOSIS: NEGATIVE FOR IN TRAEPITHELIAL LESION OR MALIGNANCY. Specimen adequacy: Satisfact ory for evaluation. No endocervical component is identified. Clinician provided ICD10: Z0 1.419 Performed by: Yadiel mahmood, Plant Hr Manager (ASCP) . . Note: The Pap smear is a screening test designed to aid in the detection of premalignant and malignant conditions of the uterine cervix. It is not a diagnostic procedure and should not be used as the sole means of detecting cervical cancer. Both false-positive and false-negative reports do occur. . Test Methodology: This liquid based ThinPrep(R) pap test was screened with the use of an image guided system. HPV Aptima Positive Negative This nucleic acid amplification test detects fourteen high-risk HPV types (16,18,31,33,35,39,45,51,52,56,58 ,59,66,68) without differentiation. HPV Genotype Reflex Criteria met, see HPV Genotype results. HPV Genotype 16 Positive Negative HPV Genotype 18,45 Negative Negative PDF Report Reviewed date:02/27/2025 09:34:56 PM Interpretation: Performing Lab:[facility], [facility] [address], [address], [place], Phone - [phone], Director - [facility] Notes/Report: Clinical Information:Vaginal/Cervical, LMP: Men o, Hx of Positive HPV, HPV Genotype Source.............Cervix;Vagina Dates / Results....03/04/23 NIL, +HPV, +16 Other..............Post Menopausal No. of containers..01 ThinPrep Vial Reason For Referral No Information Medications Medication SIG (Take, Route, Frequency, Duration) Notes Start Date End Date Status Ketorolac Tromethamine 0.5 % Ophthalmic for 42 Days Activ e Ezetimibe 10 MG Oral for 90 Days Active amLODIPine Besylate 2.5 MG 1 tablet Oral ly Once a day Active Metoprolol Tartrate 25MG 1 ORAL twice daily for -01/05/2012 Active Estradiol 10 MCG 1 tablet Vaginal THR EE TIMES PER WEEK for 90 days 02/21/2025 Active Aspirin EC 81MG 1 ORAL daily for -01/05/2012 Active Venlafaxine HCl ER 225 MG 1 tablet with food Orally Once a day Active Pantoprazole Sodium 40 MG 1 tablet Orall y Once a day Active Atorvastatin Calcium 80 MG 1 tablet Oral ly Once a day Active Social History Tobacco Use: Social History Observation Description Date Details (start date - stop date) Former Smoker NA - NA AUDIT-C (Standard) Question Answer Notes Did you have a drink contain ing alcohol in the past year? Yes How often did you have a dri nk containing alcohol in the past year? Monthly or less (1 point) How many drinks did you have on a typical day when you were drinking in the past year? 1 or 2 drinks (0 point) How often did you have six o r more drinks on one occasion in the past year? Never (0 point) Points 1 Interpretation Negative Tobacco Control (Standard) Question Answer Notes Tobacco use: Former smoker How long has it been since you last smoked? 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 vaginal specimen (110507372406448) Cervical high risk human papillomavirus (HPV) DNA test positive (R87.810) Active confirmed Problem Postmenopausal atrophic vaginitis (16777519) Postmenopausal atrophic vaginitis (N95.2) Active confirmed Problem Subacute and chronic vaginitis (N76.1) Active confirmed Problem Atrophy of vulva (361061511) Atrophy of vulva (N90.5) Active confirmed Problem History of dysplasia of cervix (966137515) Personal history of cervical dysplasia (Z87.410) Active confirmed Problem Gynecological examination normal (931090972721953) Encounter for gynecological examination (general) (routine) without abnormal findings (Z01.419) Active confirmed Problem Benign neoplasm of vulva (27233136) Benign neoplasm of vulva (221.2) Active confirmed Major Problem Hyperlipidemia (51031145) Other and unspecified hyperlipidemia (272.4) Active confirmed Major Problem Depressive disorder (98985050) Depressive disorder, not elsewhere classified (311) Active confirmed Major Problem Esophageal reflux (245661921) Esophageal reflux (530.81) Active confirmed Major Problem Menopausal symptom (26810981) Symptomatic menopausal or female climacteric states (627.2) Active confirmed Major Problem Atypical glandular cells on cervical Papanicolaou smear (835170950) Abnormal glandular Papanicolaou smear of cervix (795.00) Active confirmed Diag Problem Gynecological examination normal (844346684935977) Routine gynecological examination (V72.31) Active confirmed Problem Screening for malignant neoplasm of colon (032624394) Special screening for malignant neoplasms, colon (V76.51) Active confirmed Major Vital Signs Temperature 97.5 degrees Fahrenheit 02/21/2025 Blood pressure diastolic 82 mm Hg 02/21/2025 Height 62 in 02/21/2025 Blood pressure systolic 130 mm Hg 02/21/2025 Weight 161 lbs 02/21/2025 BMI 29.44 kg/m2 02/21/2025 Encounters Encounter Location Date Provider Diagnosis [address] [place] [address] 02/21/2025 Shelbie Hanson Encounter for gynecological examination (general) (routine) without abnormal findings Z01.419 ; Encounter for screening mammogram for malignant neoplasm of breast Z12.31 ; Personal history of cervical dysplasia Z87.410 and Postmenopausal atrophic vaginitis N95.2 [facility] [address] [place] [address] 02/01/2025 Shelbie Hanson Assessments Encounter Date Diagnosis (ICD Code) Assessment Notes Treatment Notes Treatment Clinical Notes Section Notes 02/21/2025 Encounter for gynecological examination (general) (routine) without abnormal findings (ICD-10 - Z01.419) PAP TEST WITH HPV TYPING WAS OBTAINED. 02/21/2025 Encounter for screening mammogram for malignant neoplasm of breast (ICD-10 - Z12.31) REGULAR MAMMOGRAMS AND SBE'S WERE RECOMMENDED. 02/21/2025 Personal history of cervical dysplasia (ICD-10 - Z87.410) DISCUSSED PREVIOUS HX OF ABNORMAL PAP TESTS AND CONE BIOPSY SHOWING RADHA 2. REPEAT PAP TEST WAS OBTAINED TODAY WITH HPV TYPING. 02/21/2025 Postmenopausal atrophic vaginitis (ICD-10 - N95.2) DISCUSSED FINDINGS, DX AND TX OPTIONS. RECOMMENDED INTRAVAGINAL ESTROGEN, DISCUSSED ITS BENEFITS AND RISKS. PAT AGREED TO TRY. RX AND DETAILED INSTRUCTIONS WERE GIVEN. Plan Of Treatment Pending Test Test Name Order Date Pap IG, rfx HPV all pth 01/31/2015 MAMMOGRAM, SCREENING 07/10/2021 MAMMOGRAM, SCREENING 07/15/2022 MAMMOGRAM, SCREENING 02/21/2025 ONE SWAB 10/22/2015 ONE SWAB 03/04/2023 ECC 04/15/2015 THIN PREP,HPV,PATTIE IF HPV+ (>29YR)(SCRN) 12/28/2017 BONE DENSITY 07/15/2022 MM Digital Mammo Screening 07/10/2021 MM Digital Mammo Screening 02/21/2025 MM Digital Mammo Screening 07/15/2022 PELVIC ULTRASOUND W/TRANSVAGINAL 021 [id number] IGP No Culture 30 Plus 2024 Next Appt Details Provider Name:Shelbie Currie etienne, 02/25/2026 11:00:00 AM, [address] [place], [place] [address]t [facility], [address], [place], [address], Insurance Providers Payer Name Payer Address Payer Phone Subscriber Number Group Number Insured Name Patient Relationship to Insured Coverage Start Date Coverage End Date MEDICARE [address] [facility] [place] [id number] JULIAN WILSON Self - patient is the insured MEDEX [address] [place] [address] [id number] JULIAN WILSON Self - patient is the insured Medical (General) History Medical History History ICD Code Unspecified abnormal cytological finding s in specimens from cervix uteri R87.619 Acute myocardial infarction, unspecified site 410.9 Major depressive disorder, single episod e, unspecified F32.9 Gastro-esophageal reflux disease without esophagitis K21.9 Benign neoplasm of vulva D28.0 Other hyperlipidemia E78.4 Essential (primary) hypertension I10 Menopausal and female climacteric states N95.1 Other lichen planus L43.8 Atypical squamous cells of u ndetermined significance on cytologic smear of cervix (ASC-US) R87.610 Cervical high risk human papillomavirus (HPV) DNA test positive R87.810 Postmenopausal atrophic vaginitis N95.2 Positive Pattie Type 16 Unspecified ovarian cyst, left side N83. 202 Surgical History Surgery Date(Month/Year) Cardiac Stent Colonoscopy Skin Cancer Excision Chest [place] Teeth Extraction Colposcopy Ovaries and Tubes Removed 10/2022 Hospitalization History Reason Date(Month/Year) See Surgical Hx 2 Vaginal Deliveries
--- OUTSIDE RECORDS SUMMARY | 2025-03-02 12:08 | XMS_ITS ---
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 :1950???Age:74 Y???Sex:Female D ate:11/22/2024 Address:[address] [place] [address] [facility] [place] [id number] Pcp:VICTOR HUGO REID MD Subjective: * Chief Complaints: * ???1. 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 * Medical History:? Objective: * Vitals:? Assessment: Plan: * Treatment: * Images: Billing Information: * Visit Code:? * Procedure Codes:? * Electronic signature of Yessica Hanson MD on 03/02/2025 at 12:07 PM EDT Sign off status: Pending * Appointment Provider:?Shelbie Hanson M.D. Date:?11/22/2024 Generated for Katie farr/Nacho/Elsi on:?03/02/2025 12:07 PM EDT
--- OUTSIDE RECORDS SUMMARY | 2025-03-02 12:08 | XMS_ITS ---
Author Organization [facility] Address [address] [facility] [address] [place] [address] Care Team Providers Care Shingle Cutter Name Role Phone FRANKLIN BARKSDALE, [facility] Primary Care Provider Shelbie Benítez [phone] REASON FOR VISIT [facility] REC[facility]DS Encounters Encounter Location Date Provider Diagnosis [facility] [address] [facility] [address] [place] [address] 02/01/2025 Shelbie Hanson Plan Of Treatment Next Appt Details Provider Name:Shelbie clifton, 02/25/2026 11:00:00 AM, [address] [facility], [address], [place], [address], Progress Notes * JULIAN WILSON EDOB:1949 (74 yo F)Acc No.[id number]:02/01/2025 Patient:?JULIAN WILSON :1950???Age:74 Y???Sex:Female Address:[address] [place] [address], [place], [address] * true * Date:? Generated for Printi ng/Famatg/eTransmitting on:?03/02/2025 12:08 PM EDT
--- OUTSIDE RECORDS SUMMARY | 2025-03-02 12:08 | XMS_ITS | Encounter Summary ---
Author Organization [facility] Address [address] [place] [address] Care Team Providers Care Radio/Tv Technician Name Role Phone Catherine Hairston MD Primary Care Provider Reason for Visit * Reason Comments Pre-op Exam Encounter Details Date Type Department Care Team ([facility] Contact Info) Description 02/27/2025 10:00 AM EDT Consult Adult Medicine - [place] [address] [place] [id number] Catherine Hairston MD [address] [place] [address] Pre-op exam (Primary Dx); Cortical age-related cataract of both eyes; Type 2 diabetes mellitus without complication, without long-term current use of insulin ([facility] V24, [facility] V28); Coronary artery disease involving [place] coronary artery of [place] heart without angina pectoris; Primary hypertension; Anxiety and depression Social History Tobacco Use Types Packs/Day Years Used Date Smoking Tobacco: Former Cigarettes 0.3 3.3 0 2008 - 09/15/2011 Smokeless Tobacco: Never Tobacco Cessation:Counseling Given: Not Answered Alcohol Use Standard Drinks/Week Comments Yes 0 (1 standard drink = 0.6 oz pur e alcohol) occasional Comments No Sex and Gender Information Value Date Recorded Sex Assigned at Not on file Legal Sex Female 2:12 AM EST Gender Identity Not on file Sexual Orientation Not on file documented as of this encounter Last Filed Vital Signs Vital Sign Reading Time Taken Comments Blood Pressure 118/78 02/27/2025 10:04 AM EDT Pulse 73 02/27/2025 10:04 AM EDT Temperature 36.1 ??C (96.9 ??F) 02/27/2025 10:04 AM E DT Respiratory Rate 16 02/27/2025 10:04 AM EDT Oxygen Saturation - - Inhaled Oxygen Concentration - - Weight 72.6 kg (160 lb) 02/27/2025 10:04 AM EDT Height 158 cm (5' 2.21 ) 02/27/2025 10:04 AM EDT Body Mass Index 29.07 02/27/2025 10:04 AM EDT documented in this encounter Progress Notes * Catherine Hairston MD - 02/27/2025 10:00 AM EDT Stop taking motrin, alleve, advil, naproxen for 5days prior to procedure. Stop taking fish oil, herbal supplements or OTC supplements 7days prior to procedure. * Catherine Hairston MD - 02/27/2025 10:00 AM EDT Referring MD: Augustine BARKSDALE HPI: Ms. Rose is a 74 y.o. year old female who is scheduled for cataract extraction on 03/06/25 and 03/20/25. She is here today for pre-operative consultation. Her functional status is greater than 4 METsas she can climb 2 flight of stairs, can walk 2 blocks, does her vacuuming and laundry. She has not had problems with anesthesia or bleeding. Chronic valvular disease: NO Pulmonary eval: Dx of JULIA-none Steroid exposure: Cortisone injection in the last 3months-yes by . Oral steroid use in the last 6months-none Hematology evaluation: Uses anticoagulants-none Antiplatelet therapy-on aspirin Hx of VTE-none Hx of inherited bleeding disorder-none CAD - angioplasty and stenting to LAD and RCA. Fby . On lipitor 80mg along with zetia 10mg and toprol 100mg daily. DM-2: HbA1c at 7.3 in dec, was recommended to start on metformin 500mg daily, she is reluctant but willing to try. HTN- BP today is well controlled. Taking norvasc 5mg daily. Denies any CP, SOB, palpitations, Trigeminal neuralgia- f/by . was advised to take gabapentin on prn basis. Pt reports she was told she had prior small strokes. Cw aspirin. Anxiety/depression- doing well on effexor. ROS: GENERAL: No malaise, significant weight loss or fever HEENT: No changes in hearing or vision, nose bleeds or other nasal problems NECK: No lumps, goiter, pain or significant neck swelling RESPIRATORY: No cough, wheezing or shortness of breath CARDIOVASCULAR: No chest pain, leg swelling or palpitations GI: No constipation/diarrhea. No abdominal discomfort, blood in stools or black stools : No dysuria, frequency or incontinence HEMATOLOGY/LYMPHOLOGY No prolonged bleeding, easy bruisability or swollen nodes ENDOCRINE: No unexplained weight loss. No polydipsia. No polyuria. No polyphagia. No goiter, lethargy or heat/cold intolerance NEURO: No persistent headache, syncope, seizures, weakness or numbness PAST MEDICAL HISTORY: Patient Active Problem List Diagnosis Date Noted Atrophic vaginitis 12/07/2023 Benign essential hypertension 12/07/2023 Class 1 obesity 12/07/2023 Shortness of breath on exertion 10/08/2021 Snoring 10/08/2021 Adnexal mass 09/23/2021 Coronary artery disease 08/08/2021 Stable angina ([facility] V24) 08/08/2021 Type 2 diabetes mellitus ([facility] V24, [facility] V28) 02/24/2018 Abdominal obesity 07/27/2016 Abnormal Pap smear of cervix 08/24/2015 Anxiety 08/24/2015 CTS (carpal tunnel syndrome) 08/24/2015 Depression 08/24/2015 Diverticulosis 08/24/2015 GERD (gastroesophageal reflux disease) 08/24/2015 Hyperlipidemia 08/24/2015 Hypertension 08/24/2015 Low back pain 08/24/2015 Old FL (myocardial infarction) 08/24/2015 Osteopenia 08/24/2015 SOCIAL HISTORY: Social History Tobacco Use Smoking status: Former Current packs/day: 0.00 Average packs/day: 0.3 packs/day for 3.3 years (0.8 ttl pk-yrs) Types: Cigarettes Start date: 2008 Quit date: 09/15/2011 Years since quittin.4 Smokeless tobacco: Never Substance Use Topics Alcohol use: Yes Comment: occasional FAMILY HISTORY: Family Status Relation Name Status Mother (Not Specified) Father No partnership data on file Family History Problem Relation Name Age of Onset Colon cancer Mother Hyperlipidemia Father Heart attack Father ACTIVE MEDICATIONS: No outpatient medications have been marked as taking for the 02/27/25 encounter (Consult) with Catherine Hairston MD. ALLERGIES: Lisinopril, Nystatin, Oxycodone hcl, and Oxycodone-acetaminophen PHYSICAL EXAM: Blood pressure 118/78, pulse 73, temperature 36.1 ??C (96.9 ??F), temperature source Temporal, resp. rate 16, height 1.58 m (62.21 ), weight 72.6 kg (160 lb). Body mass index is 29.07 kg/m??. APPEARANCE: Alert and in no acute distress EYES: EOMI, conjunctiva and sclera normal. EARS: External ears normal. Canals clear. TMs normal. MOUTH/THROAT: no erythema or exudates. Moist oral mucosa NECK: Neck supple, no adenopathy, thyroid symmetric and of normal size HEART: RRR with normal S1 and S2, no murmurs, no gallops, no JVD appreciated LUNG: Clear to auscultation bilaterally. No accessory muscle use. No wheeze or crackles ABDOMEN: Soft, non-tender. Bowel sounds normoactive, no bruits. No organomegaly or palpable masses GAIT: Normal NEURO: Alert and oriented x 3. No gross motor deficits. No proximal muscle weakness. PSYCH: Stable mood. Denies SI/HI LABS: Lab Results Component Value Date WBC 9.4 10/06/2024 HGB 13.7 10/06/2024 HCT 41.3 10/06/2024 MCV 90.0 10/06/2024 Lab Results Component Value Date NA 131 (L) 02/05/2025 K 3.6 02/05/2025 CO2 28 02/05/2025 CL 97 02/05/2025 BUN 17 02/05/2025 Lab Results Component Value Date HGBA1C 7.3 (H) 02/05/2025 Testing:acceptable EKG:.normal sinus rhythm, rate 67/min, no new ST-T wave changes. QTC normal. ASSESSMENT AND PLAN: 1. Pre-op exam 2. Cortical age-related cataract of both eyes 3. Type 2 diabetes mellitus without complication, without long-term current use of insulin ([facility], [facility] V28) 4. Coronary artery disease involving [place] coronary artery of [place] heart without angina pectoris 5. Primary hypertension 6. Anxiety and depression This is a 74 y.o. old patient, here today for a pre-op evaluation for cataract extraction. Cardiac - Ms. Rose clinical risk factors include ischemic heart disease diabetes mellitus and female is scheduled for a low risk procedure. Her functional capacity is estimated to be greater than 4 METs. She is, therefore, estimated to have an acceptablerisk for the proposed procedure. Further cardiac workup is not warranted. Beta blockade perioperatively is to be continued. Pulmonary - Her pulmonary risk factors include age > 50. Early ambulation and use of incentive spirometry, when appropriate, are encouraged. Medications - hold your AM medications on the day of procedure. Stop taking motrin, alleve, advil, naproxen for 5days prior to procedure. Stop taking fish oil, herbal supplements or OTC supplements 7days prior to procedure. Please do not hesitate to contact me with any questions or concerns. Thank you for the courtesy of this consultation. Catherine Hairston MD on 02/27/2025 at 10:40 AM EDT documented in this encounter Plan of Treatment Upcoming Encounters Date Type Department Care Team (Late st Contact Info) Description 06/07/2025 9:45 AM EDT Office Visit Adult Medicine - [address] [address] Barry Garza PA [address] [place] [address] Scheduled Orders Name Type Priority Associated Diagnoses Orde r Schedule ECG 12 lead ECG Routine Pre-op exam Cortical age-related cataract of both eyes Type 2 diabetes mellitus without complication, without long-term current use of insulin ([facility] V24, [facility] V28) Coronary artery disease involving [place] coronary artery of [place] heart without angina pectoris Primary hypertension Anxiety and depression Expected: 02/27/2025 (Approximate), Expires: 02/27/2026 documented as of this encounter Results * (ABNORMAL) Comprehensive metabolic panel (02/27/2025 11:00 AM EDT) Sodium 135 133 - 145 mmol/L LAB CHEMISTRY METHOD 02/27/2025 1:02 PM [facility] Potassium 3.5 3.5 - 5.5 mmol/L LAB CHEMISTRY METHOD 02/27/2025 1:02 PM [facility] Chloride 100 96 - 110 mmol/L LAB CHEMISTRY METHOD 02/27/2025 1:02 PM [facility] CO2 28 21 - 32 mmol/L LAB CHEMISTRY METHOD 02/27/2025 1:02 PM [facility] Anion Gap 7 3 - 11 LAB CHEMISTRY METHOD 02/27/2025 1:02 PM [facility] Glucose 116(H) 70 - 100 mg/dL LAB CHEMISTRY METHOD 02/27/2025 1:02 PM [facility] BUN 16 5 - 25 mg/dL LAB CHEMISTRY METHOD 02/27/2025 1:02 PM [facility] Creatinine 0.76 0.50 - 1.10 mg/dL LAB CHEMISTRY METHOD 02/27/2025 1:02 PM [facility] eGFR 81 >=60 mL/min/1. 73m2 LAB CHEMISTRY METHOD 02/27/2025 1:02 PM [facility] Comment:Calculation based on the??Chronic Kidney Disease Epidemiology Collaboration (CKD-EPI) equation refit??without adjustment for race. BUN/Creatinine Ratio 21.1 LAB CHEMISTRY METHOD 02/27/2025 1:02 PM [facility] Calcium 9.3 8.5 - 10.5 mg/dL LAB CHEMISTRY METHOD 02/27/2025 1:02 PM [facility] AST (SGOT) 16 10 - 42 unit/L LAB CHEMISTRY METHOD 02/27/2025 1:02 PM EDT [facility] ALT (SGPT) 41 10 - 60 unit/L LAB CHEMISTRY METHOD 02/27/2025 1:02 PM EDT [facility] Alkaline Phosphatase 120 42 - 121 unit/L LAB CHEMISTRY METHOD 02/27/2025 1:02 PM EDT [facility] Total Protein 7.3 6.0 - 8.0 g/dL LAB CHEMISTRY METHOD 02/27/2025 1:02 PM EDT [facility] Albumin 3.5 3.2 - 5.0 g/dL LAB CHEMISTRY METHOD 02/27/2025 1:02 PM EDT [facility] Total Bilirubin 0.5 0.0 - 1.4 mg/dL LAB CHEMISTRY METHOD 02/27/2025 1:02 PM EDT [facility] Blood Venous blood specimen / Unknown Venipuncture / Unknown 02/27/2025 11:00 AM EDT 02/27/2025 11:00 AM EDT us Catherine Hairston MD LAB BLOOD ORDERABLES F inal Result [facility] [address] [place] [address], [place] [phone] documented in this encounter Visit Diagnoses Diagnosis Pre-op exam- Primary Cortical age-related cataract of both eyes Type 2 diabetes mellitus without complication, without long-term current use of insulin ([facility] V24, [facility] V28) Coronary artery disease involving [place] coronary artery of [place] heart without angina pectoris Primary hypertension Unspecified essential hypertension Anxiety and depression documented in this encounter Historical Medications * This list may reflect changes made after this encounter. metFORMIN (GLUCOPHAGE) 500 mg tablet Take 1 tablet (500 mg total) by mouth 1 (one) time each day with breakfast. added in this encounter Care Teams Radio/Tv Technician Relationship Specialty Start Date End Date Catherine Hairston MD [address] [place] [address] [phone] PCP - General 06/05/24 documented as of this encounter
--- OUTSIDE RECORDS SUMMARY | 2025-03-02 12:08 | XMS_ITS ---
Author Organization [facility] Address [address] [place] [address] Care Team Providers Care Case Management Associate Name Role Phone FRANKLIN BARKSDALE, VICTOR HUGO Primary Care Provider Shelbie Benítez Unavailable [phone] Allergies Allergen (clinical drug ingredient) Drug/Non Drug Allergy documented on EMR Reaction Allergy Type Onset Date Status MYCOSTATIN Swelling Drug Allergy Active Novocain Unknown Drug Allergy Active TYLOX Skin Rash Drug Allergy Active lisinopril Lisinopril Unknown Drug Allergy Activ e nystatin Nystatin Unknown Drug Allergy Active Results Component Value Reference Range Notes [id number] IGP No Culture 30 Plus (Not yet reviewed by provider) Interpretation: Performing Lab:[facility], [address], [address], [place], Phone - [phone], Director - [facility] Notes/Report: Clinical Information:Vaginal/Cervical, LMP: Men o, Hx [...] ICD10: Z0 1.419 Performed by: Yadiel mahmood, Milk Driver (ASCP) . . Note: The Pap smear [...] Report Reviewed date:02/27/2025 09:34:56 PM Interpretation: Performing Lab:[facility] Acevedo, [address], [address], [place], Phone - [phone], Director - [facility] Notes/Report: Clinical Information:Vaginal/Cervical, LMP: Men o, Hx of Positive HPV, HPV Genotype Source.............Cervix;Vagina Dates / Results....03/04/23 NIL, +HPV, +16 Other..............Post Menopausal No. of containers..01 ThinPrep Vial REASON FOR VISIT Annual MICROBIAL SPECIALIST Physical, Annual MICROBIAL SPECIALIST Physical 60-85+ Medications Medication SIG (Take, Route, Frequency, Duration) Notes Start Date End Date Status Ketorolac Tromethamine 0.5 % Ophthalmic for 42 Days Activ e Ezetimibe 10 MG Oral for 90 Days Active amLODIPine Besylate 2.5 MG 1 tablet Oral ly Once a day Active Estradiol 10 MCG 1 tablet Vaginal THR EE TIMES PER WEEK for 90 days 02/21/2025 Active Venlafaxine HCl ER 225 MG 1 tablet with food Orally Once a day Active Atorvastatin Calcium 80 MG 1 tablet Oral ly Once a day Active Metoprolol Tartrate 25MG 1 ORAL twice daily for -3 01/05/2012 Active Aspirin EC 81MG 1 ORAL daily for -01/05/2012 Active Pantoprazole Sodium 40 MG 1 tablet Orall y Once a day Active Social History Tobacco [...] Problem Status W/U Status Risk Notes Problem History of dysplasia of cervix (098255769) Personal history of cervical dysplasia (Z87.410) Active confirmed Vital Signs Temperature 97.5 degrees Fahrenheit 02/22/20 25 Blood pressure systolic 130 mm Hg 02/22/20 25 Blood pressure diastolic 82 mm Hg 025 Height 62 in 02/21/2025 Weight 161 lbs 02/21/2025 BMI 29.44 kg/m2 02/21/2025 Encounters Encounter Location Date Provider Diagnosis [address] [address] 02/21/2025 Shelbie Hanson Encounter for gynecological examination (general) (routine) without abnormal findings Z01.419 ; Encounter for screening mammogram for malignant neoplasm of breast Z12.31 ; Personal history of cervical dysplasia Z87.410 and Postmenopausal atrophic vaginitis N95.2 Assessments Encounter Date Diagnosis (ICD Code) Assessment [...] DETAILED INSTRUCTIONS WERE GIVEN. Plan Of Treatment Medication Medication Name Sig Start Date Stop Date Notes Estradiol 10 MCG 1 tablet Vaginal THR EE TIMES PER WEEK for 90 days 02/21/2025 Treatment Notes Assessment Notes Encounter for gynecological examination (general) (routine) without abnormal findings PAP TEST WITH HPV TYPING WAS OBTAINED. Encounter for screening mamm ogram for malignant neoplasm of breast REGULAR MAMMOGRAMS AND SBE'S WERE RECOMMENDED. Personal history of cervical dysplasia DISCUSSED PREVIOUS HX OF ABNORMAL PAP TESTS AND CONE BIOPSY SHOWING RADHA 2. REPEAT PAP TEST WAS OBTAINED TODAY WITH HPV TYPING. Postmenopausal atrophic vaginitis DISCUSSED FINDINGS, DX AND TX OPTIONS. RECOMMENDED INTRAVAGINAL ESTROGEN, DISCUSSED ITS BENEFITS AND RISKS. PAT AGREED TO TRY. RX AND DETAILED INSTRUCTIONS WERE GIVEN. Pending Test Test Name Order Date MAMMOGRAM, SCREENING 02/21/2025 MM Digital Mammo Screening 02/21/[id number] IGP No Culture 30 Plus 2024 Next Appt Details Follow Up: 1 Year, Reason: Provider Name:Shelbie clifton, 02/25/2026 11:00:00 AM, [address], [address], [place], [address], Progress Notes * JULIAN WILSON EDOB:1949 (74 yo F)Acc No.[id number]:02/21/2025 PROGRESS NOTES Patient:?JULIAN WILSON Appointment Provider:?Shelbie clifton M.D. :1950???Age:74 Y???Sex:Female D ate:02/21/2025 Address:[address] [place] [address], [id number] Pcp:VICTOR HUGO REID MD Subjective: * Chief Complaints: * ???Annual MICROBIAL SPECIALIST PhysicalAnnual MICROBIAL SPECIALIST Physical 60-85+ * HPI: ???New/Follow-up Patient Consult:? PAT ENTERED MENOPAUSE IN 1998.? SHE HAS BEEN MORE THAN 50 YEARS, NOT SEXUALLY ACTIVE. ?? SHE HAS A HX OF ABNORMAL PAP TESTS.?? 06/2021 - PAP NEG, +HR HPV (NEG 16,18/45) 08/2022 - PAP NEG, +HR HPV - DR HEWITT - COLPO INADEQUATE, ECC NEG 02/2023 - PAP NEG, +HPV 16 04/2023 - COLPOSCOPY WITH DR HEWITT - RADHA 2 05/2023 - CONE BIOPSY -? RADHA 2 WITH CLEAR MARGINS 01/10/24 - COLPOSCOPY? NEG, ECC NEG S/P LAPAROSCOPIC BSO IN OCT 2022 FOR BENIGN OVARIAN CYSTS. HER LAST MAMMOGRAM DONE IN JANUARY 2025 SHOWED BREASTS ARE NOT DENSE AND WAS NORMAL. HER BMD'S DONE IN 2017 AND 2022 WERE BOTH NORMAL. SHE HAD COLONOSCOPIES DONE IN 2016 AND 2022. ???Annual:? Patient presents for annual exam, ages 60-85, postmenopausal. ?General Health Maintenance:?Current breast complaints:?no breast pain, mass, discharge, or skin changes ?Urinary problems:?patient reports no urinary health problems or bowel health problems ?Calcium intake:?takes adequate calcium via diet and supplementation ?Significant MICROBIAL SPECIALIST problems:?no significant handkerchief folder symptoms or problems * ROS:?general:?no?chest pain.?no?palpitations.?no?headache.?no?cough.?no?shortness of breath.?no?fever.?no?unexplained weight loss.?no?nausea/vomiting.?no?change in bowel movements.?no blood in stool.?no?genitourinary complaints.?no?skin complaints.? * Medical History:? * [employer] Helper History:?/ Para?2/2.?Sexual activity?currently sexually active.?Last Pap Smear:?03/04/23 NIL POS HRHPV, Positive HPV Genotype 16, 07/15/22 NIL, POS HRHPV, Positive HPV Genotype 16, 07/10/21 NIL, POS HRHPV( Neg 16, 18/45), 7/15/20 NIL, NEG HPV, 12/28/17 NIL, NEG HRHPV, 12/10/2016 , ASCUS, NEG HRHPV, 10/22/15 NIL, POS HRHPV, Positive HPV Genotype 16.?Mammogram:?01/26/25 < 50% density, 01/21/24 < 50% density, 12/21/22 < 50% density, 10/17/21 < 50% density, 09/23/20 < 50% density, 07/26/19 < 50% density, 07/11/18 < 50% density, 07/08/2017, normal.?Abnormal Pap Smear:?2014 ASCUS, positive HRHPV, positive HPV Genotype 16 2008 , LGSIL +HPV.?LMP and menses?Menopause.? Control:?None.?Colonoscopy?2022, 2016 q 5 years, 2012.?Bone Density:?12/21/22, 07/25/18, 04/27/13.? * OB History:?Total pregnancies?2.?Total living children?2.?NVD?2.? * Surgical History:?Cardiac St ent Colonoscopy Skin Cancer Excision Chest [place] Teeth Extraction Colposcopy Ovaries and Tubes Removed 10/2022 * Hospitalization/Major Diagno stic Procedure:?2 Vaginal Deliveries See Surgical Hx * Family History:?Mother: dece ased, Colon Cancer.?Father: , coronary artery disease.?Paternal aunt: Breast Cancer, diagnosed with Other malignant neoplasm of unspecified site.?Maternal uncle: Colon Cancer, diagnosed with Other malignant neoplasm of unspecified site.? * Social History:?Tobacco Use:?Tobacco Control (Standard)?Tobacco use:?Former smoker ?How long has it been since you last smoked??Greater than 10 years ???Sexual History:?Sexual History?Had sex in the past 12 months (vaginal, oral, or anal)?: Yes, with: Men only, Prevention strategies discussed:: Other.?Details of Sexual History?Are you sexually active??Yes ???Drugs/Alcohol:?Drugs?Have you used drugs other than those for medical reasons in the past 12 months??No ???Miscellaneous:?Children: yes, 2. ?Domestic violence: no. ?Exercise: yes, Cardio. ?Home smoke detector use: yes. ?Living with: spouse. ?Marital status: . ?Natural support system: yes. ?Occupation: Retired. ?Sexual abuse: no. ?Sexually active: yes, monogamous relationship. ?Verbal abuse: no. ???Drug/Alcohol:?AUDIT-C (Standard)?Did you have a drink containing alcohol in the past year??Yes ?How often did you have a drink containing alcohol in the past year??Monthly or less (1 point) ?How many drinks did you have on a typical day when you were drinking in the past year??1 or 2 drinks (0 point) ?How often did you have six or more drinks on one occasion in the past year??Never (0 point) ?Points?1 ?Interpretation?Negative * Medications:?TakingAspirin E C 81MG 30 1 ORAL daily Metoprolol Tartrate 25MG 60 1 ORAL twice daily Pantoprazole Sodium 40 MG Tablet Delayed Release 1 tablet Orally Once a day Venlafaxine HCl ER 225 MG Tablet Extended Release 24 Hour 1 tablet with food Orally Once a day Atorvastatin Calcium 80 MG Tablet 1 tablet Orally Once a day amLODIPine Besylate 2.5 MG Tablet 1 tablet Orally Once a day Ezetimibe 10 MG Tablet Oral Ketorolac Tromethamine 0.5 % Solution Ophthalmic Taking Aspirin EC 81MG 30 1 ORAL daily Taking Metoprolol Tartrate 25MG 60 1 ORAL twice daily Taking Pantoprazole Sodium 40 MG Tablet Delayed Release 1 tablet Orally Once a day Taking Venlafaxine HCl ER 225 MG Tablet Extended Release 24 Hour 1 tablet with food Orally Once a day Taking Atorvastatin Calcium 80 MG Tablet 1 tablet Orally Once a day Taking amLODIPine Besylate 2.5 MG Tablet 1 tablet Orally Once a day Taking Ezetimibe 10 MG Tablet Oral Taking Ketorolac Tromethamine 0.5 % Solution Ophthalmic DiscontinuedEstradiol Vaginal Cream 0.01% Cream 1 Gram Vaginally Twice a week Clotrimazole-Betamethasone 1- 0.05 % Cream 1 application to affected area Externally Twice a day metroNIDAZOLE 0.75 % Gel 1 applicatorful at bedtime Vaginal EVERY NIGHT Estradiol Vaginal Cream 0.01% Cream 1 Gram to the affected area Vaginal/Vulva Twice a week Medication List reviewed and reconciled with the patientDiscontinued Estradiol Vaginal Cream 0.01% Cream 1 Gram Vaginally Twice a week Discontinued Clotrimazole-Betamethasone 1-0.05 % Cream 1 application to affected area Externally Twice a day Discontinued metroNIDAZOLE 0.75 % Gel 1 applicatorful at bedtime Vaginal EVERY NIGHT Discontinued Estradiol Vaginal Cream 0.01% Cream 1 Gram to the affected area Vaginal/Vulva Twice a week Medication List reviewed and reconciled with the patient * Allergies:?MYCOSTATIN: Swell ing - AllergyTYLOX: Skin Rash - AllergyNystatin: AllergyNovocain: AllergyLisinopril: Allergyno[Allergies Verified] Objective: * Vitals:?Ht: 62 in, Wt: 161 l bs, BMI:29.44Index, BP: 130/82 mm Hg, Temp: 97.5 F. * Examination: ???General Exam: ?CONSTITUTIONAL:?General Appearance:?alert, in no acute distress, normal, well nourished ?NECK/THYROID:?Inspection/Palpation:?normal ?Thyroid:?normal size and shape ?RESPIRATORY:?Auscultation: clear to auscultation bilaterally, Respiratory Effort: normal.?CARDIOVASCULAR:?Auscultation: regular rate and rhythm.?BREAST, Right:?Inspection/Palpation:?no discharge, no masses present, no nipple retraction, no skin changes, no skin dimpling, no tenderness, no lymphadenopathy, no axillary mass, no axillary tenderness ?BREAST, Left:?Inspection/Palpation:?no discharge, no masses present, no nipple retraction, no skin changes, no skin dimpling, no tenderness, no lymphadenopathy, no axillary mass, no axillary tenderness ?GASTROINTESTINAL:?Abdomen:?no masses, nontender, nondistended ?Liver and Spleen:?normal ?Hernias:?no hernias present, no inguinal adenopathy ?MUSCULOSKELETAL:?Inspection/Palpation:?no clubbing, cyanosis, or edema ?SKIN:?Skin:?normal ?NEURO/PSYCH:?Orientation:?time , place, person ?Mood/Affect:?normal?Genitourinary: ?EXTERNAL GENITALIA:?External Genitalia:?normal, no lesions ?VAGINA:?Vagina:?atrophic vaginal tissue, minimal moisture ?BLADDER:?Bladder:?no mass, nontender ?URETHRA:?Urethra:?no erythema or lesions present ?CERVIX:?Cervix:?no lesions, nontender ?UTERUS:?Uterus:?nontender, normal contour, normal mobility, normal size ?ADNEXA:?Adnexa:?no masses, no tenderness ?ANUS AND PERINEUM:?Anus/Perineum:?visually normal??? Assessment: * Assessment: 1.?Encounter for gynecologic al examination (general) (routine) without abnormal findings - Z01.419???2.?Encounter for screening mammogram for malignant neoplasm of breast - Z12.31???3.?Personal history of cervical dysplasia - Z87.410???4. Postmenopausal atrophic vaginitis - N95.2??? Plan: * Treatment: Notes: PAP TEST WITH HPV TYPING WAS OBTAINED.??2.?Encounter for screening mammogram for malignant neoplasm of breast?Imaging: MM Digital Mammo Screening Notes: REGULAR MAMMOGRAMS AND SBE'S WERE RECOMMENDED.??3.?Personal history of cervical dysplasia? Notes: DISCUSSED PREVIOUS HX OF ABNORMAL PAP TESTS AND CONE BIOPSY SHOWING RADHA 2. REPEAT PAP TEST WAS OBTAINED TODAY WITH HPV TYPING.??4.?Postmenopausal atrophic vaginitis? Start Estradiol Tablet, 10 MCG, 1 tablet, Vaginal, THREE TIMES PER WEEK, 90 days, 36 Tablet, Refills 4.?? Notes: DISCUSSED FINDINGS, DX AND TX OPTIONS. RECOMMENDED INTRAVAGINAL ESTROGEN, DISCUSSED ITS BENEFITS AND RISKS. PAT AGREED TO TRY. RX AND DETAILED INSTRUCTIONS WERE GIVEN.?? * Imaging:? * ?Imaging: MAMMOGRAM, SCR EENING * Procedure Codes:? * Preventive Medicine:? ??YOUR PREVENTIVE WELLNESS PLAN:?Osteoporosis prevention?Calcium, D, strength training.?Breast Cancer Screening (Mammogram):?annually.?Cervical Cancer Screening (Pap Smear):?q 3 years with HPV screen.?Colorectal Cancer Screening:?q 10 years.? * Follow Up:?1 Year * Images: Billing Information: * Visit Code:? [id number] Preventive Care Est Pt. Age 65 and over. * Procedure Codes:? * Sign off status: Completed true * Appointment Provider:?Shelbie Hanson M.D. Date:?02/21/2025 Generated for Katie farr/Nacho/eTangeloitting on:?03/02/2025 12:08 PM EDT History and Physical Notes * HPI (History of Present Illness) Category Sub-Category Detail Notes Category Not es New/Follow-up Patient Consult PAT ENTERED MENOPAUSE IN 1998. SHE HAS BEEN MORE THAN 50 YEARS, NOT SEXUALLY ACTIVE. SHE HAS A HX OF ABNORMAL PAP TESTS. 06/2021 - PAP NEG, +HR HPV (NEG 16,18/45) 08/2022 - PAP NEG, +HR HPV - DR HEWITT - COLPO INADEQUATE, ECC NEG 02/2023 - PAP NEG, +HPV 16 04/2023 - COLPOSCOPY WITH DR HEWITT - RADHA 2 05/2023 - CONE BIOPSY - RADHA 2 WITH CLEAR MARGINS 01/10/24 - COLPOSCOPY NEG, ECC NEG S/P LAPAROSCOPIC BSO IN OCT 2022 FOR BENIGN OVARIAN CYSTS. HER LAST MAMMOGRAM DONE IN JANUARY 2025 SHOWED BREASTS ARE NOT DENSE AND WAS NORMAL. HER BMD'S DONE IN 2017 AND 2022 WERE BOTH NORMAL. SHE HAD COLONOSCOPIES DONE IN 2016 AND 2022. Annual General Health Maintenance: Current breast complaints:: no breast pain, mass, discharge, or skin changes Urinary problems:: patient r eports no urinary health problems or bowel health problems Calcium intake:: takes adequ ate calcium via diet and supplementation Significant MICROBIAL SPECIALIST problems:: n o significant handkerchief folder symptoms or problems Examination Category Sub-Category Detail Notes Category Not es General Exam CONSTITUTIONAL: General Appearan ce:: alert, in no acute distress, normal, well nourished NECK/THYROID: Thyroid:: normal size and shape Inspection/Palpation:: normal RESPIRATORY: Auscultation: clear to auscultation bilaterally, Respiratory Effort: normal CARDIOVASCULAR: Auscultation: regula r rate and rhythm GASTROINTESTINAL: Hernias:: no hernias present, no inguinal adenopathy Liver and Spleen:: normal Abdomen:: no masses, nontender, nondiste nded MUSCULOSKELETAL: Inspection/Palpation:: no clubb ing, cyanosis, or edema SKIN: Skin:: normal NEURO/PSYCH: Mood/Affect:: normal Orientation:: time , place, person BREAST, Right: Inspection/Palpation :: no discharge, no masses present, no nipple retraction, no skin changes, no skin dimpling, no tenderness, no lymphadenopathy, no axillary mass, no axillary tenderness BREAST, Left: Inspection/Palpation :: no discharge, no masses present, no nipple retraction, no skin changes, no skin dimpling, no tenderness, no lymphadenopathy, no axillary mass, no axillary tenderness Genitourinary EXTERNAL GENITALIA: External Genitalia:: nor mal, no lesions VAGINA: Vagina:: atrophic vaginal tissue , minimal moisture BLADDER: Bladder:: no mass, nontender URETHRA: Urethra:: no erythema or lesions present CERVIX: Cervix:: no lesions, nontender UTERUS: Uterus:: nontender, normal conto ur, normal mobility, normal size ADNEXA: Adnexa:: no masses, no tendernes s ANUS AND PERINEUM: Anus/Perineum:: visually norm al
--- OUTSIDE RECORDS SUMMARY | 2025-03-02 12:09 | XMS_ITS | Clinical Summary ---
Author Organization [facility] Address [address] [place] [address] Care Team Providers Care Virology Teacher Name Role Phone Unavailable Primary Care Provider Unavailabl e Social History Tobacco Use Types Packs/Day Years Used Date Smoking Tobacco: Never Assessed Sex and Gender Information Value Date Recorded Sex Assigned at Not on file Gender Identity Not on file Sexual Orientation Not on file Job Start Date Occupation Industry Not on file Not on file Not on file Plan of Treatment Not on file Sparkle Rose Personal/Family Self 1950 [address] [place] [address] Sparkle Rose Personal/Family Self 1950 [address] [place] [address]
--- OUTSIDE RECORDS SUMMARY | 2025-03-02 12:09 | XMS_ITS | Clinical Summary ---
Author Organization [address] [facility] Address [address] [facility] [place] [address] Phone Care Team Providers Care [employer] Installer Name Role Phone Catherine Hairston MD Primary Care Provider Allergies Active Allergy Reactions Criticality Noted Date Comments Lisinopril Rash 08/24/2015 Nystatin Rash,Hives 08/24/2015 swelling Oxycodone Hcl 02/03/2022 Oxycodone-Acetaminophen Rash 08/24/2015 Medications acetaminophen (TYLENOL) 325 mg tablet as needed. 3 Active gabapentin (NEURONTIN) 100 mg capsule Take 1 Capsule by mouth daily. 4 Active ibuprofen (ADVIL,MOTRIN) 800 mg tablet Take 1 Tablet by mouth every 8 hours as needed for Pain. 4 Active aspirin 81 mg chewable tablet Chew 1 tablet (81 mg total) 1 (one) time each day. 1 Active pantoprazole (PROTONIX) 40 mg EC tablet TAKE 1 TABLET BY MOUTH DAILY 90 tablet 5 Active ezetimibe (ZETIA) 10 mg tablet TAKE 1 TABLET BY MOUTH DAILY 90 tablet 5 Active amLODIPine (NORVASC) 5 mg tablet TAKE 1 TABLET BY MOUTH DAILY 90 tablet 5 Active atorvastatin (LIPITOR) 80 mg tablet TAKE 1 TABLET BY MOUTH ONCE DAILY 90 tablet 5 Active metoprolol succinate (TOPROL-XL) 100 mg 24 hr tablet TAKE 1 TABLET BY MOUTH DAILY 90 tablet 5 Active venlafaxine XR (EFFEXOR-XR) 75 mg 24 hr capsule TAKE 3 CAPSULES BY MOUTH DAILY 270 capsule 5 Active cholecalciferol (VITAMIN D-3) 25 mcg (1,000 unit) tablet Take 1 tablet (1,000 Units total) by mouth 1 (one) time each day. Active metFORMIN (GLUCOPHAGE) 500 mg tablet Take 1 tablet (500 mg total) by mouth 1 (one) time each day with breakfast. Active fluticasone propionate (FLONASE) 50 mcg/actuation nasal spray 1 spray in each nostril 1-2 times daily 5 02/06/20 Discontinu ed(Therapy completed) melatonin 5 mg tablet Take 1 Tab by mouth every evening. 9 02/06/20 25 Discontinu ed(Therapy completed) Active Problems Problem Noted Date Diagnosed Date Atrophic vaginitis 12/07/2023 Benign essential hypertension 12/07/2023 Overview (08/25/2024): Benign essential hypertension Class 1 obesity 12/07/2023 Shortness of breath on exertion 10/08/2021 Overview (08/25/2024): Last Assessment & Plan: I noted she has been getting short of breath on exertion for some time. The exact etiology is not clear. I do not think is due to ischemic heart disease. She does snore and she could have sleep apnea I am going to schedule for sleep test. I am going to check a chest x-ray. Recent CBC in July her hemoglobin was good. I will schedule her for PFTs. I also think she should see a environmental studies faculty member. Do not believe it is too to valvular heart disease but I will get an echocardiogram. Snoring 10/08/2021 Overview (08/25/2024): Last Assessment & Plan: This patient does snore and she could have sleep apnea as a cause for her shortness of breath. I am going to schedule for sleep test. Adnexal mass 09/23/2021 Overview (08/25/2024): Following with Dr. Rosa Snow, gynecologic oncology Coronary artery disease 08/08/2021 Overview (08/25/2024): Last Assessment & Plan: She does have a known history of coronary artery disease. She was having some arm discomfort when she was walking on the treadmill but there was no chest pain. Not clear if this may have been ischemic mediated or not. I am going to schedule for stress echocardiogram. I did tell her if she ever had any chest discomfort that lasted over 15 minutes call 911. Stable angina ([facility] V24) 08/08/2021 Overview (08/25/2024): Last Assessment & Plan: Mr. Mcelroy presents to the office today with stable angina. For the last few weeks she has had a tightness in her chest which is the exact same symptoms she had prior to her CA 10 years ago. She is pending a possible gynecologic procedure and was sent to our office for restratification. She has a normal stress test from 2018. Given her clinical symptoms and past medical history I am going to proceed with a diagnostic left heart cardiac catheterization to assess her coronary anatomy which is not been evaluated in the past 10 years. Her symptoms are consistent with possible rein- stent stenosis. We discussed the risks and benefits of a diagnostic left heart cardiac catheterization. Risks to include but not limited to bleeding, infection, damage to artery, allergy to contrast dye, stroke, CA, or . She verbalizes understanding and agrees to proceed. She will continue her current medications to include aspirin, amlodipine, metoprolol, high intensity statin therapy, and Zetia. She has been instructed for any chest pain or chest discomforts lasting 15 minutes or longer to seek urgent medical attention. We will arrange this to be done at [facility] hopefully in the next 2 weeks. Type 2 diabetes mellitus (CMS/[facility] V24, CMS/[facility] V 28) 02/24/2018 Abdominal obesity 07/27/2016 Abnormal Pap smear of cervix 08/24/2015 Overview (08/25/2024): S/p colposcopy Anxiety 08/24/2015 CTS (carpal tunnel syndrome) 08/24/2015 Overview (08/25/2024): Bilateral ctr Depression 08/24/2015 Diverticulosis 08/24/2015 Overview (08/25/2024): Moderate in sigmoid on colonoscopy GERD (gastroesophageal reflux disease) 5 Hyperlipidemia 08/24/2015 Overview (08/25/2024): Last Assessment & Plan: Last lipid profile demonstrated that the total cholesterol was 121, the HDL was 53 and the LDL was 47. Would continue with the current dose of atorvastatin and Zetia. Hypertension 08/24/2015 Overview (08/25/2024): Last Assessment & Plan: Today her blood pressure is mildly elevated. She states when she is at rehab of the blood pressure has been very good in the 1 teens over 60s. Low back pain 08/24/2015 Overview (08/25/2024): djd Old CA (myocardial infarction) 08/24/2015 Overview (08/25/2024): 07/06/16: Neg nuclear stress test EF 67%: EF 25% post CA, stress echo 02/2014 EF 60%, 09/25; stent times 2 09/25---- Follows with Dr. Valerie Rodríguez 08/24/2015 Encounters Date Type Department Care Team Description 02/27/2025 10:00 AM EDT Consult Adult Medicine - [facility] [address] [place] [id number] Catherine Hairston MD Pre-op exam (Primary Dx); Cortical age-related cataract of both eyes; Type 2 diabetes mellitus without complication, without long-term current use of insulin (CMS/HCC V24, CMS/HCC V28); Coronary artery disease involving kaibab coronary artery of kaibab heart without angina pectoris; Primary hypertension; Anxiety and depression 02/05/2025 2:30 PM EDT Office Visit Adult Medicine - [facility] [address] [place] [phone] Catherine Hairston MD Type 2 diabetes mellitus without complication, without long-term current use of insulin ([facility] V24, [facility] V28) (Primary Dx); Coronary artery disease involving kaibab coronary artery of kaibab heart without angina pectoris; Primary hypertension; Hyperlipidemia, unspecified hyperlipidemia type; Gastroesophageal reflux disease, unspecified whether esophagitis present; Anxiety and depression from Last 3 Months Immunizations Name Administration Dates Next Due Influenza Quadravalent, 0.5m l (Fluad) 65yo and older 09/24/2021 Influenza Quadravalent, 0.5m l (Fluzone High-dose) 65yo and older 10/01/2022 Influenza trivalent, 0.5mL ( Fluad) 65yo and older 10/06/2024,08/17/2023,09/10/2020,09/06,09/26/2018,07/28/2017,07/27/2016 ,09/03/2015 Influenza trivalent, 0.5mL ( Fluzone High-dose) 65yo and older 08/17/2023,09/10/2020,09/06/2019,09/26,07/28/2017 Influenza trivalent, with pr eservative (Fluzone; Afluria) 6mo and older 07/27/2016,09/03/2015 Influenza, Unspecified 09/26/2022 [employer] SARS-CoV-2 COVID-19, mRNA, LNP-S, preservative free 09/24/2021,01/30/2021,01/09/2021 Pneumococcal conjugate 13 va lent (Prevnar 13, PCV13) 2mo and older 01/17/2016 Pneumococcal polysaccharide 23 valent (Pneumovax 23) 2yo and older 12/21/2014 Td Tetanus diptheria (Tdvax) 7yo and older 06/01/2018 Tdap Tetanus diptheria acell ular pertussis (Boostrix; Adacel) 7yo and older 04/16/2008 Surgical History Surgery Date Site/Laterality Comments ROTATOR CUFF REPAIR Left PROCEDURE: HISTORICAL ROTATOR CUFF REPAIR CARPAL TUNNEL RELEASE Bilateral PROCEDURE: HISTORICAL CARPAL TUNNEL REL COLONOSCOPY 12/24/2004 PROCEDURE: HISTORICAL COLONOSCOPY COLONOSCOPY 05/05/2013 PROCEDURE: HISTORICAL COLONOSCOPY; COMMENT: diverticulosis UPPER GASTROINTESTINAL ENDOSCOPY 09/02/2018 PROCEDURE: [place] UPPER GI ENDOSCOPY PERFORMED; COMMENT: Normal esophagus, small hiatal hernia, normal duodenum, COLONOSCOPY 09/02/2018 PROCEDURE: HISTORICAL COLONOSCOPY; COMMENT: Multiple nonbleeding diverticuli sigmoid colon, moderate severity, repeat 5 years, Dr Ritter OTHER SURGICAL HISTORY 10/2022 Bilateral PROCEDURE: HISTORICAL ADNEXAL SURGERY; COMMENT: salpingo-oophorectomy Medical History Medical History Date Comments Hypertension 08/24/2015 DX:Hypertension GERD (gastroesophageal reflux disease) 5 DX:GERD (gastroesophageal reflux disease) Old CA (myocardial infarction) 08/24/2015 D X:Old CA (myocardial infarction); COMMENT: 09/25; stent times 2 09/25 CTS (carpal tunnel syndrome) 08/24/2015 DX: CTS (carpal tunnel syndrome); COMMENT: Bilateral ctr Diverticulosis 08/24/2015 DX:Diverticulosi s Hyperlipidemia 08/24/2015 DX:Hyperlipidemi a Osteopenia 08/24/2015 DX:Osteopenia Depression 08/24/2015 DX:Depression Abnormal Pap smear of cervix 08/24/2015 DX: Abnormal Pap smear of cervix; COMMENT: S/p colposcopy Low back pain 08/24/2015 DX:Low back pain ; COMMENT: djd Anxiety 08/24/2015 DX:Anxiety CHF (congestive heart failur e) ([facility] V24, [facility] V28) 08/24/2015 DX:CHF (congestive heart sosa lure) ([facility]); COMMENT: Per hospital records at time of CA 2010 Abnormal fasting glucose 08/24/2015 DX:Abno rmal fasting glucose Family History Medical History Relation Name Comments Heart attack Father Hyperlipidemia Father Colon cancer Mother Relation Name Status Comments Father Mother Social History Tobacco Use Types Packs/Day Years [...] on file Sexual Orientation Not on file Obstetrics History Last Filed Vital Signs Vital Sign Reading [...] Mass Index 29.07 02/27/2025 10:04 AM EDT Plan of Treatment Upcoming Encounters Date Type Department Care Team (Late st Contact Info) Description 06/07/2025 9:45 AM EDT Office Visit Adult Medicine - [facility] [address] [place] [phone] Barry Garza PA [address] [place] [address] Health Maintenance Due Date Last Done Comments Zoster Vaccines (1 of 2) 1998 Osteoporosis Screening (Bone Density Screening) 10/18/2022 Social Influencers of Health Screening 10/18/2022 RSV Immunization Adult Patients (1 - 1-dose 75+ series) 2023 Falls Risk Assessment 01/05/2024 01/05/2023 COVID-19 Vaccine ( season) 2024 11/22/2022, 04/24/2022, 09/24/2021, Additional history exists Diabetes: Annual Retina Eye Exam 11/04/2024 11/04/2023 Medicare Annual Wellness Visit 05/25/2025 05/25/2024 Depression Screening 06/05/2025 06/05/2024 Diabetes: Blood Sugar Control Test (HGBA1C) 08/08/2025 02/05/2025, 09/28/2024, 06/05/2024, Additional history exists Diabetes: Annual Foot Exam 10/06/2025 10/06/2024, Diabetes: Annual Urine Albumin-Creatinine Ratio (uACR) 02/05/2026 02/05/2025, 03/15/2024 Diabetes: Annual GFR (Glomerular Filtration Rate) 02/27/2026 02/27/2025, 02/05/2025, 09/28/2024, Additional history exists Hypertension/CHF/CAD Annual BMP Blood Test 02/27/2026 02/27/2025, 02/05/2025, 09/28/2024, Additional history exists DTaP,Tdap,and Td Vaccines (3 - Td or Tdap) 06/01/2028 06/01/2018, 04/16/2008 Colorectal Cancer Screening: Colonoscopy 09/02/2028 09/02/2018 Cholesterol Screening (Lipid Panel) 02/05/2030 02/05/2025, 06/05/2024, 06/05/2024 Pneumococcal Vaccine: 50+ Years Completed 01/17/2016, 12/21/2014 Hepatitis C Screening Completed 03/10/2017 Influenza Vaccine Completed 10/06/2024, , 08/17/2023, Additional history exists HIB Vaccines Aged Out No longer eligi ble based on patient's age to complete this topic HPV Vaccines Aged Out No longer eligi ble based on patient's age to complete this topic Hepatitis A Vaccines Aged Out No long er eligible based on patient's age to complete this topic Hepatitis B Vaccines Aged Out No long er eligible based on patient's age to complete this topic IPV Vaccines Aged Out No longer eligi ble based on patient's age to complete this topic MMR Vaccines Aged Out No longer eligi ble based on patient's age to complete this topic Meningococcal ACWY Vaccine Aged Out N o longer eligible based on patient's age to complete this topic Meningococcal B Vaccine Aged Out No l onger eligible based on patient's age to complete this topic RSV Immunization Patients Under 20 months Aged Out No longer eligible based on patient's age to complete this topic Varicella Vaccines Aged Out No longer eligible based on patient's age to complete this topic Procedures Procedure Name Priority Date/Time Associated Diagnosis Comments CBC WITH AUTO DIFFERENTIAL Routine 02/27/2025 11:00 AM EDT Pre-op exam Cortical age-related cataract of both eyes Type 2 diabetes mellitus without complication, without long-term current use of insulin ([facility] V24, [facility] V28) Coronary artery disease involving kaibab coronary artery of kaibab heart without angina pectoris Primary hypertension Anxiety and depression CBC AND DIFFERENTIAL Routine 02/27/2025 11:00 AM EDT Pre-op exam Cortical age-related cataract of both eyes Type 2 diabetes mellitus without complication, without long-term current use of insulin (CMS/HCC V24, CMS/HCC V28) Coronary artery disease involving kaibab coronary artery of kaibab heart without angina pectoris Primary hypertension Anxiety and depression COMPREHENSIVE METABOLIC PANEL Routine 02/27/2025 11:00 AM EDT Pre-op exam Cortical age-related cataract of both eyes Type 2 diabetes mellitus without complication, without long-term current use of insulin (CMS/HCC V24, CMS/HCC V28) Coronary artery disease involving kaibab coronary artery of kaibab heart without angina pectoris Primary hypertension Anxiety and depression ECG 12-LEAD Routine 02/27/2025 10:44 AM EDT MICROALBUMIN CREATININE URINE RATIO Routine 02/05/2025 3:38 PM EDT Primary hypertension Hyperlipidemia, unspecified hyperlipidemia type Type 2 diabetes mellitus without complication, without long-term current use of insulin ([facility] V24, CMS/[facility] V28) LIPID PANEL WITH REFLEX TO DIRECT LDL Routine 02/05/2025 3:09 PM EDT Primary hypertension Hyperlipidemia, unspecified hyperlipidemia type Type 2 diabetes mellitus without complication, without long-term current use of insulin (CMS/[facility] V24, CMS/[facility] V28) HEMOGLOBIN A1C Routine 02/05/2025 3:09 PM EDT Primary hypertension Hyperlipidemia, unspecified hyperlipidemia type Type 2 diabetes mellitus without complication, without long-term current use of insulin ([facility] V24, CMS/[facility] V28) COMPREHENSIVE METABOLIC PANEL Routine 02/05/2025 3:09 PM EDT Primary hypertension Hyperlipidemia, unspecified hyperlipidemia type Type 2 diabetes mellitus without complication, without long-term current use of insulin ([facility] V24, CMS/[facility] V28) DEPRESSION SCREENING Routine 06/05/2024 DIABETES EYE EXAM Routine 11/04/2023 FALLS RISK ASSESSMENT Routine 01/05/2023 DIABETES FOOT EXAM Routine 01/05/2023 COLONOSCOPY Routine 09/02/2018 HEPATITIS C SCREENING Routine 03/10/2017 from Last 3 Months or Most Recently Relevant to Health Maintenance Results * CBC auto differential (02/27/2025 11:00 AM EDT) [facility] WBC 8.1 4.8 - 10.8 K/mcL LAB HEMETOLOGY METHOD 02/27/2025 11:54 AM [facility] RBC 4.60 3.80 - 4.80 M/mcL LAB HEMETOLOGY METHOD 02/27/2025 11:54 AM [facility] Hemoglobin 13.6 11.5 - 16.0 g/dL LAB HEMETOLOGY METHOD 02/27/2025 11:54 AM [facility] Hematocrit 40.6 35.0 - 47.0 % LAB HEMETOLOGY METHOD 02/27/2025 11:54 AM [facility] MCV 89.0 79.0 - 98.0 FL LAB HEMETOLOGY METHOD 02/27/2025 11:54 AM [facility] MCH 29.8 27.0 - 32.0 pcg LAB HEMETOLOGY METHOD 02/27/2025 11:54 AM [facility] MCHC 33.5 32.0 - 37.0 g/dL LAB HEMETOLOGY METHOD 02/27/2025 11:54 AM [facility] RDW 12.3 11.0 - 15.0 % LAB HEMETOLOGY METHOD 02/27/2025 11:54 AM [facility] Platelets 217 130 - 400 K/mcL LAB HEMETOLOGY METHOD 02/27/2025 11:54 AM [facility] MPV 9.7 7.0 - 11.0 FL LAB HEMETOLOGY METHOD 02/27/2025 11:54 AM [facility] NRBC 0.0 <1.0 % LAB HEMETOLOGY METHOD 02/27/2025 11:54 AM [facility] NRBC Absolute 0.00 <0.10 K/mcL LAB HEMETOLOGY METHOD 02/27/2025 11:54 AM [facility] Neutrophils Relative 62.0 % LAB HEMETOLOGY METHOD 02/27/2025 11:54 AM [facility] Lymphocytes Relative 23.3 % LAB HEMETOLOGY METHOD 02/27/2025 11:54 AM [facility] Monocytes Relative 11.5 % LAB HEMETOLOGY METHOD 02/27/2025 11:54 AM [facility] Eosinophils Relative 2.1 % LAB HEMETOLOGY METHOD 02/27/2025 11:54 AM [facility] Basophils Relative 0.9 % LAB HEMETOLOGY METHOD 02/27/2025 11:54 AM [facility] Immature Granulocytes Relative 0.2 % LAB HEMETOLOGY METHOD 02/27/2025 11:54 AM [facility] Neutrophils Absolute 5.04 1.50 - 7.00 K/mcL LAB HEMETOLOGY METHOD 02/27/2025 11:54 AM [facility] Lymphocytes Absolute 1.90 1.00 - 5.00 K/mcL LAB HEMETOLOGY METHOD 02/27/2025 11:54 AM [facility] Monocytes Absolute 0.94 0.20 - 1.00 K/mcL LAB HEMETOLOGY METHOD 02/27/2025 11:54 AM [facility] Eosinophils Absolute 0.17 0.00 - 0.50 K/mcL LAB HEMETOLOGY METHOD 02/27/2025 11:54 AM [facility] Basophils Absolute 0.07 0.00 - 0.20 K/mcL LAB HEMETOLOGY METHOD 02/27/2025 11:54 AM EDT [facility] Immature Granulocytes Absolute 0.02 0.00 - 0.03 K/mcL LAB HEMETOLOGY METHOD 02/27/2025 11:54 AM [facility] Blood Venous blood specimen / Unknown Venipuncture / Unknown 02/27/2025 11:00 AM EDT 02/27/2025 11:00 AM EDT us Catherine Hairston MD LAB BLOOD ORDERABLES F inal Result [facility] [address] [place] [address], [place] [phone] * (ABNORMAL) Comprehensive metabolic panel (02/27/2025 11:00 AM EDT) Only the most recent of2 resultswithin the time period is included. Sodium 135 133 - 145 mmol/L LAB CHEMISTRY METHOD 02/27/2025 1:02 PM [facility] Potassium 3.5 3.5 - 5.5 mmol/L LAB CHEMISTRY METHOD 02/27/2025 1:02 PM [facility] Chloride 100 96 - 110 mmol/L LAB CHEMISTRY METHOD 02/27/2025 1:02 PM [facility] CO2 28 21 - 32 mmol/L LAB CHEMISTRY METHOD 02/27/2025 1:02 PM [facility] Anion Gap 7 3 - 11 LAB CHEMISTRY METHOD 02/27/2025 1:02 PM [facility] Glucose 116(H) 70 - 100 mg/dL LAB CHEMISTRY METHOD 02/27/2025 1:02 PM [facility] BUN 16 5 - 25 mg/dL LAB CHEMISTRY METHOD 02/27/2025 1:02 PM [facility] Creatinine 0.76 0.50 - 1.10 mg/dL LAB CHEMISTRY METHOD 02/27/2025 1:02 PM [facility] eGFR 81 >=60 mL/min/1. 73m2 LAB CHEMISTRY METHOD 02/27/2025 1:02 PM [facility] Comment:Calculation based on the??Chronic Kidney Disease Epidemiology Collaboration (CKD-EPI) equation refit??without adjustment for race. BUN/Creatinine Ratio 21.1 LAB CHEMISTRY METHOD 02/27/2025 1:02 PM [facility] Calcium 9.3 8.5 - 10.5 mg/dL LAB CHEMISTRY METHOD 02/27/2025 1:02 PM [facility] AST (SGOT) 16 10 - 42 unit/L LAB CHEMISTRY METHOD 02/27/2025 1:02 PM [facility] ALT (SGPT) 41 10 - 60 unit/L LAB CHEMISTRY METHOD 02/27/2025 1:02 PM [facility] Alkaline Phosphatase 120 42 - 121 unit/L LAB CHEMISTRY METHOD 02/27/2025 1:02 PM [facility] Total Protein 7.3 6.0 - 8.0 g/dL LAB CHEMISTRY METHOD 02/27/2025 1:02 PM [facility] Albumin 3.5 3.2 - 5.0 g/dL LAB CHEMISTRY METHOD 02/27/2025 1:02 PM [facility] Total Bilirubin 0.5 0.0 - 1.4 mg/dL LAB CHEMISTRY METHOD 02/27/2025 1:02 PM [facility] Blood Venous blood specimen / Unknown Venipuncture / Unknown 02/27/2025 11:00 AM EDT 02/27/2025 11:00 AM EDT us Catherine Hairston MD LAB BLOOD ORDERABLES F inal Result [facility] [address] [place] [address], [place] [phone] * ECG 12 lead (02/27/2025 10:44 AM EDT) Historical Provider ECG ORDERABLES Final Res ult * Microalbumin creatinine urine ratio (02/05/2025 3:38 PM EDT) Creatinine, Urine 29.0 mg/dL LAB CHEMISTRY METHOD 02/05/2025 7:10 PM EDT [facility] Microalb, Ur 5.0 0.0 - 29.0 mg/L LAB CHEMISTRY METHOD 02/05/2025 7:10 PM EDT [facility] Microalb/Creat Ratio 17 <30 mg/g creat LAB CHEMISTRY METHOD 02/05/2025 7:10 PM EDT [facility] Urine Urine specimen obtained by clean catch procedure / Unknown Non-blood Collection / Unknown 02/05/2025 3:38 PM EDT 02/05/2025 3:38 PM EDT Barry VILLEGAS LAB URINE ORDERABLES Final Re sult [facility] [address] [place] [address], * (ABNORMAL) Lipid panel with reflex to direct LDL (02/05/2025 3:09 PM EDT) Cholesterol 148 0 - 200 mg/dL LAB CHEMISTRY METHOD 02/05/2025 6:08 PM EDT [facility] Triglycerides 167(H) 0 - 150 mg/dL LAB CHEMISTRY METHOD 02/05/2025 6:08 PM EDT [facility] HDL 54 >=40 mg/dL LAB CHEMISTRY METHOD 02/05/2025 6:08 PM EDT [facility] LDL Calculated 61 0 - 100 mg/dL LAB CHEMISTRY METHOD 02/05/2025 6:08 PM EDT [facility] VLDL Cholesterol Kevin 33.4 mg/dL LAB CHEMISTRY METHOD 02/05/2025 6:08 PM EDT [facility] Non HDL Chol. (LDL+VLDL) 94 <145 mg/dL LAB CHEMISTRY METHOD 02/05/2025 6:08 PM EDT [facility] Chol/HDL Ratio 2.7 0.0 - 4.4 LAB CHEMISTRY METHOD 02/05/2025 6:08 PM EDT [facility] Blood Venous blood specimen / Unknown Venipuncture / Unknown 02/05/2025 3:09 PM EDT 02/05/2025 3:09 PM EDT us Barry VILLEGAS LAB BLOOD ORDERABLES Final Re sult Performing Organization Address City/[facility]/ZIP Co de Phone Number [facility] [address] [place] [address], [place] [phone] * (ABNORMAL) Hemoglobin A1c (02/05/2025 3:09 PM EDT) Hemoglobin A1C 7.3(H) <6.5 % LAB CHEMISTRY METHOD 02/05/2025 10:28 PM EDT [facility] Mean Bld Glu Estim. 163 mg/dL LAB CHEMISTRY METHOD 02/05/2025 10:28 PM EDT [facility] Blood Venous blood specimen / Unknown Venipuncture / Unknown 02/05/2025 3:09 PM EDT 02/05/2025 3:09 PM EDT us Barry VILLEGAS LAB BLOOD ORDERABLES Final Re sult [facility] [address] [place] [address], [place] [phone] * Hm Depression Screening (06/05/2024) Pathologist [facility] Depression Screening Abstracted [facility] Provider HEALTH MAINTENANCE Final Result * Diabetes Eye Exam (11/04/2023) [facility] Diabetes: Annual Retina Eye Exam Abstracted [facility] Provider HEALTH MAINTENANCE Final Result * Falls Risk Assessment (01/05/2023) [facility] Falls Risk Assessment Abstracted [facility] Provider HEALTH MAINTENANCE Final Result * Diabetes Foot Exam (01/05/2023) Pathologist [facility] Diabetes: Annual Foot Exam Abstracted Result [facility] Provider HEALTH MAINTENANCE Final Result * Colonoscopy (09/02/2018) [facility] Colonoscopy No interpreta tion,abstr acted Anatomical Region Laterality Modality Other [facility] [facility] Provider HEALTH MAINTENANCE Final Result * Hepatitis C Screening (03/10/2017) [facility] Hepatitis C Screening Abstracted [facility] Provider HEALTH MAINTENANCE Final Result from Last 3 Months or Most Recently Relevant to Health Maintenance Insurance MEDICARE [facility] Care Teams 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
--- OUTSIDE RECORDS SUMMARY | 2025-03-02 12:09 | XMS_ITS | Data Portability ---
Author Organization [place] - [facility], Allergy Address [address] [place] [id number] Care Team Providers Care Zipper Ironer Name Role Phone COURTNEY RUBY Referring Provider [phone] Assessment Encounter Date Assessment Date Assessment LastModified by Organization Details LastModified Time 09/01/2024 09/01/2024 74-year-old female presents for evaluation of left-sided otalgia. She was diagnosed with trigeminal neuralgia by a neurologist and reports symptoms respond well with gabapentin. Right sided cerumen impaction removed. On exam, bilateral tympanic membranes are intact with well aerated middle ear spaces. Audiometric testing was offered today, but patient declined and would prefer to come back at a later date for this. She will continue to follow-up with her neurologist for management of trigeminal neuralgia. She has longstanding history of chronic cough and has been seen by Dr. Guzman for this in 2016. She has upcoming appointment with a silk snapper for further evaluation of her cough. She will follow-up if symptoms persist or recur and fiberoptic laryngoscopy may be considered at that time. Patient agrees with the plan and all questions were answered tamara Not available 09/01/2024 12:47:53 Plan of Treatment Reminders Order Date Submit Date Provider Last Modified By Organization Details Last Modified Time Details Appointments None record ed. Lab None record ed. Referral None record ed. Procedures None record ed. Surgeries None record ed. Imaging None record ed. Medication Orders None record ed. Patient TargetsNo targets recorded. Patient InstructionsNo instructions recorded. Reason for Referral None Reported. Problems Name Problem SNOMED Code Status Onset Date Resolution Date Notes Provider Name and Address Organization Details Recorded Time Cough 70102419 Active 2015 Cough; Note: Date Diagno sed: 016 10:40 AM (R05) Not Available [facility] 4 03:24:31 Impacted cerumen in right ear 8055020007562 103 Active 2023 ABRAN MCGRATH PA-C [address] [facility],[place] [address], [place], [phone] , [facility] 4 12:43:05 Left trigeminal neuralgia 0295834746464 9103 Active 2023 ABRAN MCGRATH PA-C [address] [facility],[place] [address], [place], [phone] , [facility] 4 12:43:10 Problem Notes None recorded. Procedures Surgical History Date Name Laterality Status Provider Name and Address Organization Details Recorded Time 4 Cerumen removal without microscope right completed ABRAN MCGRATH PA-C [address] [facility],[place] [address], [place], [phone], [facility] 09/01/2024 12:42:59 Imaging Results None recorded. Procedure Notes None recorded. Medical Equipment None Reported. Medications Name Sig Start Date Stop Date Status Note LastModified by Organization Details LastModified Time atorvastat in 80 mg tablet active Not Available Not Available Not Available venlafaxin e ER 75 mg capsule,ex tended release 24 hr active Not Available Not Available Not Available ibuprofen 800 mg tablet TAKE 1 TABLET BY MOUTH EVERY 8 HOURS NEEDED FOR PAIN active Not Available Not Available No t Available metoprolol succinate ER 100 mg tablet,ext ended release 24 hr active Not Available Not Available Not Available prednisone 5 mg tablet active Not Available Not Available Not Available amlodipine 5 mg tablet active Not Available Not Available Not Available pantoprazo le 40 mg tablet,del ayed release active Not Available Not Available Not Available gabapentin 100 mg capsule TAKE 1 TO 3 CAPSULES BY MOUTH EVERY DAY active Not Available Not Available No t Available ipratropiu m bromide 42 mcg (0.06 %) nasal spray USE 2 SPRAYS IN EACH NOSTRIL TWICE DAILY NEEDED FOR ALLERGY SYMPTOMS active Not Available Not Available No t Available metformin ER 500 mg tablet,ext ended release 24 hr TAKE 1 TABLET BY MOUTH DAILY WITH BREAKFAST active Not Available Not Available No t Available ezetimibe 10 mg tablet active Not Available Not Available Not Available aspirin 2015 active Medicatio n ID: [id number] Br and Name: aspirin S end Method: E-Prescri bed Subs Allowed: subs OK Medica tionGener icName: aspirin Not Available Not Available Not Available Fish Oil 2015 active Medicatio n ID: [id number] Br and Name: fish oil Send Method: E-Prescri bed Subs Allowed: subs OK Medica tionGener icName: fish oil Not Available Not Available Not Available Vitals Date Recorded Body height Body mass index (BMI) Body weight Provider Name and Address Organization Details Last Updated DateTime 09/01/2024 157.48 cm 30.2 kg/m2 75303.74 g Tom Pope [place] - [facility] 09/01/2024 11:01:20 Social History None recorded. Functional Status None recorded. Mental Status None recorded. Family History Nothing Reported. Medical History No medical history recorded. Gynecological HistoryNo gynecological history recorded. Obstetrics History GPAL:G 0 P 0 0 0 0 Past Encounters Encounter ID Performer Location Encounter Start Date Encounter Closed Date Diagnosis/Indication Diagnosis SNOMED-CT Code Diagnosis ICD10 Code Diagnosis Note [id number] ABRAN MCGRATH PA-C [facility] [address] [phone] 09/01/2024 10:45:48 09/01/2024 11:30:24 Impacted cerumen in right ear [id number] 440936 H61.21 Left trige yoan neuralgia 8914851147 2579540 G50.0 Health Concerns Section Related Observation LastModified by Organization Detai ls LastModified Time None Recorded Concern Status LastModified by Organization Details LastModified Time None Recorded Advance Directives Directive None Recorded Payers Encounter Date Sequence Insurance Name Policy Number Policy Sapp Covered Member ID Sapp Member ID Guarantor Name 09/01/2024 1 [place] [employer] Crystal Evie Milton [id number] Crystal Milton 09/01/2024 2 [place] [id number] Crystal Milton [id number] Crystal Milton Notes Date Note Type Note Provider Name and Address Organization Details Recorded Time 09/01/2024 text/html 74-year-old fema le presents for evaluation of left-sided otalgia. She reports 2 episodes of sharp bouts of left-sided otalgia radiating across the forehead and cheek back in July 2023 and January 2024. She had wax removed from the left ear by urgent care. She also followed up with a neurologist who diagnosed her with trigeminal neuralgia. She reports she had imaging with a neurologist which confirmed this. She was started on gabapentin which she takes episodically. Not currently experiencing any otalgia, otorrhea, or facial pain. She does not have any concerns about her hearing. Denies prior otologic surgery or history of chronic ear infections. She has upcoming evaluation with a silk snapper for evaluation of chronic cough. Denies allergy history. ABRAN MCGRATH PA-C [address] [place] [address], [phone], [facility] - [facility] 09/01/2024 12:48:03 OBGyn Episode No OBEpisode recorded.
== END 2025-03-02 11:03 | disposition home or self-care (01) ==
LOC: HO.LAB 11:02
PROVIDERS: PCP Family Medicine; Visit Provider Psychiatry & Neurology Neurology
DX: G31.84 Mild cognitive impairment of uncertain or unknown etiology (principal)
CPT/HCPCS: 82233; 82234; 84393

== ENCOUNTER 2025-10-08 10:57 | Outpatient (AMB) | payer MEDICARE, SELFPAY ==
--- NOTE | 2025-10-08 10:59 | A.OFFVIS_ITS ---
Vital Signs 10/08/25 11:02 Height 5 ft 2 in Weight 162 lb 0.636 oz BMI 29.6 BP 138/64 Blood Pressure Location Lt brachial Position Sitting Pulse 70 Pulse Source Pulse Oximeter Pulse Oximetry (%) 96 Oxygen Delivery Method Room Air Intake Visit Reasons: ILD Wire Spooler Required: No Accompanied by: Self / Same As Patient Allergies nystatin (From Mycostatin) Allergy (Severe, Verified 10/08/25 11:05) Rash acetaminophen (From TYLOX) Allergy (Intermediate, Verified 10/08/25 11:05) RASH lisinopril (LISINOPRIL) Allergy (Intermediate, Verified 10/08/25 11:05) RASH HPI Comments Details: The patient is a 75-year-old woman with a known history of cough who apparently was being evaluated for an adnexal density. While a [facility] she did undergo a CT scan of the abdomen and pelvis which demonstrated underlying areas of parenchymal disease and pulmonary fibrosis. Patient also has evidence of atelectasis. Some of the areas colitis in 2 nodular densities. The lung cuts of the CT scan of the abdomen were limited. The patient needs a formal CT scan of the chest to better address underlying findings and symptoms. On further questioning the patient denies any exposure to any significant fumes or toxins. She has been exposed to cleaning chemicals in the past. She denies any pets or any birds in the household. Denies any exposure to any mold or any farms. the patient does like to garden. 09/30/2022 the patient is here for a pulmonary follow-up visit. Overall the patient is doing well from a respiratory status. She has found that the rescue inhaler is effective in helping her cough. She also noticed that her nasal drip is improved with the nasal spray. She still has episodes of coughing specially if she is exposed to chemicals or cleaning agents. She is wondering if asked to do with that. She also has reflux disease. Medication, Protonix does control her symptoms. We did review her CT scan of the chest demonstrating interstitial changes at the bases with some traction bronchiectasis. She also has small subcentimeter pulmonary nodules that will need to be followed. The patient does have significant calcifications of the coronary arteries but she is being followed by Cardiology. we also looked at her PFTs consistent with a restrictive lung disease. The patient is wondering why this is the case as far as the interstitial lung disease. At this point will go ahead and request blood work to assess for any inflammatory or hypersensitivity reactions. In addition to that the patient follow a strict reflux diet and will have a barium swallow to further address the possibility of aspiration pneumonitis. 04/27/2023 the patient is here for a pulmonary follow-up visit. The patient overall feels about the same. Still complaining of dyspnea on exertion. Moderate in severity. Primarily when going up a flight of stairs of our help. She usually needs to stop and rest is hard for her to speak in full sentences. As far as her workup she was supposed to have blood work but she has not done as of yet. She is going to have it today. Patient did undergo a barium swallow without any evidence of any reflux disease to suggest aspiration pneumonitis as flat before. We did again review her CT scan of the chest demonstrating some bibasilar fibrotic changes. Explained to the patient that the blood work will try to identify this inflammatory process related to the fibrotic changes. Although sometimes he can have the fibrotic changes which may progress without any evidence of inflammation. Therefore, will have her get an x-ray and see how she is doing the patient did have a brief walking oximetry in the office and she does not qualify for oxygen which is reassuring. She does need to increase her exercise activity however she needs to also monitor heart rate closely. If her chest x-rays reasonable then will go ahead and plan to follow-up in 4-[address] scan of the chest. 09/01/2023 the patient is here for a pulmonary follow-up visit. She is still complaining of dyspnea on exertion. Tada-wb-djhdzdiu severity. Mainly going up flight of stairs or a hill. The patient did have a repeat chest x-ray which was reassuring. Her last CT scan of the chest was back in August 2022. She does h ave a pulmonary nodule in addition to the interstitial lung disease. Will go ahead and request a CT scan of the chest in a couple months after she completes her 8 week pulmonary rehabilitation program that she is about to start. I am hopeful that she can work on deep breathing in minimize the amount of atelectasis. She is monitoring closely reflux since sleeping with a wedge pillow which is also helping. Again we did review the blood work without any evidence of any secondary causes for interstitial lung disease. I am hopeful that the degree of pulmonary fibrosis has not progress and therefore no further interventions warranted. Will plan to repeat PFTs next year. If however her CT scans worse with worsening interstitial lung disease to suggest a progressive fibrotic process then will make her an appointment to follow-up sooner in order to talk about antifibrotic agents and potential other interventions. 09/04/2024 the patient is here for a pulmonary follow-up visit. Overall she is doing well. Shortness breath is better. She did have her PFTs since it was rescheduled and at this point I do not believe she needs it right now. She did have a CT scan of the chest in 12/04/2023 which I personally reviewed with her. Appears to have stable pulmonary nodules now for couple years which is reassuring. The interstitial lung disease also settle which is reassuring. She does have significant calcifications of the coronary arteries. She is concerned about the MRI of her brain. She is going to talk to her neurologist. She does have nonspecific changes. I did give her a copy of the results. In the meantime the patient continues to complain about intermittent cough. Usually nonproductive in nature and usually a scratchy throat. I will give her a prescription for benzo nights. She can use it with a [employer] card. She will follow-up in a year with PFTs. 10/08/2025 the patient is here for pulmonary follow-up visit. Overall the patient is feeling well. Denies any worsening shortness of breath cough chest pain. Overall she denies any new complaints. Her only issue is the cough. Sometimes she coughs when she is in a crowded place when she gets exposed to any sense and then when she starts coughing she has coughing spells. She does have the Tessalon Perles. She has not used them. She also can consider other cough suppressants. I did recommend she preemptively use the Bentson Arturo specially if she has not before going to an activity where she may cough. Also she has to refrain from strong odors her sense that may irritate her throat and start cou ghing as well. As far as her PFTs the patient did not have them. Will go ahead and just reschedule everything for next year. We did review her last CT scan from 2023 demonstrating stable findings although she has some interstitial changes. Will go ahead and request a chest x-ray next year along with the PFTs. If any significant findings we can always order additional imaging studies. If she started developing any worsening respiratory symptoms prior to the next visit she can always call for an earlier evaluation or recommendations. [facility] Medical History (Updated 09/04/24 @ 20:41 by Aidan Evans MD) Pulmonary nodule ILD (interstitial lung disease) Chronic cough Social History Patient Tobacco Use Status: Former Tobacco user Tobacco use type: Cigarette Years Smoked: 2 Years Review of Systems Const Denies fatigue and Denies fever(s) Eyes Denies change in vision ENT Denies change in voice Card Denies chest pain, Denies dyspnea and Reports dyspnea on exertion Resp Reports cough, Denies dyspnea, Reports dyspnea on exertion and Denies wheezing GI Reports no additional complaints Musc Reports no additional complaints Skin/Breast Denies rash Neuro Reports no additional complaints Endo Denies fatigue Bhavik/Lymph Denies easy bleeding and Denies easy bruising Aller/Immun Denies wheezing Physical Exam Vital Signs: Last Vital Signs Pulse 70 10/08/25 11:02 BP 138/64 10/08/25 11:02 Pulse Ox 96 10/08/25 11:02 Oxygen Delivery Method Room Air 10/08/25 11:02 BMI result Body Mass Index 29.6 Const General: comfortable Orientation/consciousness: patient oriented x3 HEENT Head: Yes normal to inspection Eyes General: appearance normal, both eyes and all related structures Neck Neck: Yes supple Chest Chest palpation & inspection: normal inspection of the chest Resp Effort & Inspection: normal respiratory effort Auscultation: no rales and diminished lung sounds Cardio Rate: regular rate Rhythm: regular rhythm Heart sounds: S1 normal heart sound present and S2 normal heart sound present GI Auscultation: normal bowel sounds Skin General skin exam: no rashes or lesions noted Neuro General: patient oriented x3 Extrem General: Yes no clubbing, cyanosis or edema Assessment & Plan Assessment & Plan (1) Chronic cough: Code(s): R05.3 - Chronic cough Category: Medical (2) ILD (interstitial lung disease): Comment: evidence of pulmonary fibrosis bibasilar distribution, better Code(s): J84.9 - Interstitial pulmonary disease, unspecified Category: Medical (3) Pulmonary nodule: Code(s): R91.1 - Solitary pulmonary nodule Category: Medical Plan continue ipratropium nasal spray for 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
[2025-10-08 11:02] VITALS: BP 138/64; PULSE 70; O2SAT 96; BMI 29.6
--- OUTSIDE RECORDS SUMMARY | 2025-10-08 14:04 | XMS_ITS | Clinical Summary ---
Author Organization [facility] Address [address] [place] [address] Care Team Providers Care Parts And Service Manager Name Role Phone Unavailable Primary Care Provider [...] Personal/Family Self 1950 [address] [place] [address] Sparkle Rose Personal/Family Self 1950 [address] [place] [address]
--- OUTSIDE RECORDS SUMMARY | 2025-10-08 14:04 | XMS_ITS | Clinical Summary ---
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 1 Active cholecalcifero l (VITAMIN D-3) 25 mcg (1,000 unit) tablet Take 1 tablet (1,000 Units total) by mouth 1 (one) time each day. Active amLODIPine (NORVASC) 5 mg tablet TAKE 1 TABLET BY MOUTH ONCE DAILY 90 tablet 5 Active atorvastatin (LIPITOR) 80 mg tablet TAKE 1 TABLET BY MOUTH ONCE DAILY 90 tablet 5 Active pantoprazole (PROTONIX) 40 mg EC tablet TAKE 1 TABLET BY MOUTH DAILY (DO NOT CRUSH, CHEW, OR SPLIT) 90 tablet 5 Active venlafaxine XR (EFFEXOR-XR) 75 mg 24 hr capsule TAKE 3 CAPSULES BY MOUTH 1 TIME EVERY DAY . DO NOT CRUSH OR CHEW 270 capsule 5 Active metoprolol succinate (TOPROL-XL) 100 mg 24 hr tablet TAKE 1 TABLET BY MOUTH DAILY (DO NOT CRUSH OR CHEW) 90 tablet 5 Active ezetimibe (ZETIA) 10 mg tablet TAKE 1 TABLET BY MOUTH ONCE DAILY 90 tablet 5 Active pantoprazole (PROTONIX) 40 mg EC tablet Take 1 tablet (40 mg total) by mouth 1 (one) time each day. Do not crush, chew, or split. 90 tablet 1 5 025 Discontinued ezetimibe (ZETIA) 10 mg tablet Take 1 tablet (10 mg total) by mouth 1 (one) time each day. 90 tablet 1 5 025 Discontinued amLODIPine (NORVASC) 5 mg tablet Take 1 tablet (5 mg total) by mouth 1 (one) time each day. 90 tablet 1 5 025 Discontinued atorvastatin (LIPITOR) 80 mg tablet Take 1 tablet (80 mg total) by mouth 1 (one) time each day. 90 tablet 1 5 025 Discontinued metoprolol succinate (TOPROL-XL) 100 mg 24 hr tablet Take 1 tablet (100 mg total) by mouth 1 (one) time each day. Do not crush or chew. 90 tablet 1 5 025 Discontinued venlafaxine XR (EFFEXOR-XR) 75 mg 24 hr capsule Take 3 capsules (225 mg total) by mouth 1 (one) time each day. Do not crush or chew. 270 capsule 1 5 025 Discontinued Active Problems Problem Noted Date Diagnosed Date Atrophic vaginitis 12/07/2023 Benign essential hypertension 12/07/2023 Overview (08/25/2024): Benign essential hypertension Assessment & Plan (09/28/2025 9:57 AM EST): BP elevated. Did not take her norvasc this morning. Orders: Comprehensive metabolic panel; Future Hemoglobin A1c; Future Class 1 obesity 12/07/2023 Shortness of breath [...] I also think she should see a cigar maker. Do not believe it is too to [...] that lasted over 15 minutes call 911. Assessment & Plan (09/28/2025 9:57 AM EST): Keep fu with cardio Orders: Comprehensive metabolic panel; Future Hemoglobin A1c; Future Stable angina ([facility] V24) 08/08/2021 Overview (08/25/2024): Last Assessment & Plan: Mr. Mcelroy presents to the office today with stable angina. For the last few weeks she has had a tightness in her chest which is the exact same symptoms she had prior to her MD 10 years ago. She is pending a [...] to artery, allergy to contrast dye, stroke, MD, or . She verbalizes understanding and agrees to proceed. She will continue her current medications to include aspirin, amlodipine, metoprolol, high intensity statin therapy, and Zetia. She has been instructed for any chest pain or chest discomforts lasting 15 minutes or longer to seek urgent medical attention. We will arrange this to be done at [facility] hopefully in the next 2 weeks. Type 2 diabetes mellitus ([facility] V24, [facility] V 28) 02/24/2018 Assessment & Plan (09/28/2025 9:57 AM EST): Never started metformin. Will check Hba1c today. Orders: Comprehensive metabolic panel; Future Hemoglobin A1c; Future Abdominal obesity 07/27/2016 Abnormal Pap smear of cervix 08/24/2015 Overview (08/25/2024): S/p colposcopy Anxiety 08/24/2015 CTS (carpal tunnel syndrome) 08/24/2015 Overview (08/25/2024): Bilateral ctr Depression 08/24/2015 Diverticulosis 08/24/2015 Overview (08/25/2024): Moderate in sigmoid on colonoscopy GERD (gastroesophageal reflux disease) 5 Assessment & Plan (09/28/2025 9:57 AM EST): C/w pantoprazole. Orders: Comprehensive metabolic panel; Future Hemoglobin A1c; Future Hyperlipidemia 08/24/2015 Overview (08/25/2024): Last Assessment & [...] back pain 08/24/2015 Overview (08/25/2024): djd Old MD (myocardial infarction) 08/24/2015 Overview (08/25/2024): 07/06/16: Neg nuclear stress test EF 67%: EF 25% post MD, stress echo 02/2014 EF 60%, 09/25; stent times 2 09/25---- Follows with Dr. Valerie Rodríguez 08/24/2015 Encounters Date Type Department Care Team Description 09/28/2025 10:20 AM EST Lab Draw Station - [address] [phone] Medicare annual wellness visit, subsequent; Type 2 diabetes mellitus without complication, without long-term current use of insulin (CMS/HCC V24, CMS/HCC V28); Benign essential hypertension; Gastroesophageal reflux disease, unspecified whether esophagitis present; Anxiety and depression; Coronary artery disease involving [place] heart without angina pectoris, unspecified vessel or lesion type 09/28/2025 9:30 AM EST Office Visit Adult Medicine - [address] [phone] Catherine Hairston MD Medicare annual wellness visit, subsequent (Primary Dx); Type 2 diabetes mellitus without complication, without long-term current use of insulin (CMS/HCC V24, CMS/HCC V28); Benign essential hypertension; Gastroesophageal reflux disease, unspecified whether esophagitis present; Anxiety and depression; Coronary artery disease involving [place] heart without angina pectoris, unspecified vessel or lesion type; Encounter for immunization 09/28/2025 Results Follow-Up Adult Medicine - [address] [phone] Catherine Hairston MD from Last 3 Months Immunizations Immunization Administration Dates Next Due Influenza Quadravalent, 0.5m l (Fluad) 65yo and older 09/24/2021 Influenza Quadravalent, 0.5m l (Fluzone High-dose) 65yo and older 10/01/2022 Influenza trivalent, 0.5mL ( Fluad) 65yo and older 10/06/2024,08/17/2023,09/10/2020,09/06,09/26/2018,07/28/2017,07/27/2016 ,09/03/2015 Influenza trivalent, 0.5mL ( Fluzone High-dose) 65yo and older 09/28/2025,08/17/2023,09/10/2020,09/06,09/26/2018,07/28/2017 Influenza trivalent, with pr eservative (Fluzone; Afluria) 6mo and older 07/27/2016,09/03/2015 Influenza, Unspecified 09/26/2022 [place] SARS-CoV-2 COVID-19, mRNA, LNP-S, preservative free 09/24/2021,01/30/2021,01/09/2021 [...] COMMENT: diverticulosis UPPER GASTROINTESTINAL ENDOSCOPY 09/02/2018 PROCEDURE: AK UPPER GI ENDOSCOPY PERFORMED; COMMENT: Normal esophagus, small hiatal hernia, normal duodenum, COLONOSCOPY 09/02/2018 PROCEDURE: HISTORICAL COLONOSCOPY; COMMENT: Multiple nonbleeding diverticuli sigmoid colon, moderate severity, repeat 5 years, Dr Ritter OTHER SURGICAL HISTORY 10/2022 Bilateral PROCEDURE: HISTORICAL ADNEXAL SURGERY; COMMENT: salpingo-oophorectomy Medical History Medical History Date Comments Hypertension 08/24/2015 DX:Hypertension GERD (gastroesophageal reflux disease) 5 DX:GERD (gastroesophageal reflux disease) Old MD (myocardial infarction) 08/24/2015 D X:Old MD (myocardial infarction); COMMENT: 09/25; stent times 2 [...] 08/24/2015 DX:Anxiety CHF (congestive heart failur e) ([facility] V24, [facility] V28) 08/24/2015 DX:CHF (congestive heart [place]) ([facility]); COMMENT: Per hospital records at time of MD 2010 Abnormal fasting glucose 08/24/2015 DX:Abno rmal [...] Sign Reading Time Taken Comments Blood Pressure 148/79 09/28/2025 9:12 AM EST Pulse 74 09/28/2025 9:12 AM EST Temperature 36.1 C (97 F) 09/28/2025 9:12 AM EST Respiratory Rate 16 09/28/2025 9:12 AM EST Oxygen Saturation - - Inhaled Oxygen Concentration - - Weight 73.2 kg (161 lb 6.4 oz) 09/28/2025 9:12 A M EST Height 162 cm (5' 3.78 ) 09/28/2025 9:12 AM EST Body Mass Index 27.9 09/28/2025 9:12 AM EST Plan of Treatment Upcoming Encounters Date Type Department Care Team (Late st Contact Info) Description 12/26/2025 3:30 PM EST Office Visit [facility] - [address] [place] [address] Frances Givens MD [address] [place] [address] [place] [phone] Health Maintenance Due Date Last Done Comments Zoster Vaccines (1 of 2) 1998 Osteoporosis Screening (Bone Density Screening) 10/18/2022 Social Influencers of Health Screening 10/18/2022 RSV Immunization Adult Patients (1 - 1-dose 75+ series) 2023 COVID-19 Vaccine ( season) 2025 11/22/2022, 04/24/2022, 09/24/2021, Additional history exists Diabetes: Annual Foot Exam 10/06/2025 10/06/2024, Diabetes: Annual Urine Albumin-Creatinine Ratio (uACR) 02/05/2026 02/05/2025, 03/15/2024 Diabetes: Annual Retina Eye Exam 03/22/2026 03/22/2025, 11/04/2023 Diabetes: Blood Sugar Control Test (HGBA1C) 03/28/2026 09/28/2025, 06/19/2025, 02/05/2025, Additional history exists Diabetes: Annual GFR (Glomerular Filtration Rate) 09/28/2026 09/28/2025, 06/19/2025, 02/27/2025, Additional history exists Falls Risk Assessment 09/28/2026 09/28/2025, 023 Hypertension/CHF/CAD Annual BMP Blood Test 09/28/2026 09/28/2025, 06/19/2025, 02/27/2025, Additional history exists Medicare Annual Wellness Visit 09/28/2026 09/28/2025, 05/25/2024 DTaP,Tdap,and Td Vaccines (3 - Td or Tdap) 06/01/2028 06/01/2018, 04/16/2008 Colorectal Cancer Screening: Colonoscopy 09/02/2028 09/02/2018 Cholesterol Screening (Lipid Panel) 02/05/2030 02/05/2025, 06/05/2024, 06/05/2024 Pneumococcal Vaccine: 50+ Years Completed 01/17/2016, 12/21/2014 Hepatitis C Screening Completed 03/10/2017 Depression Screening Completed 09/28/2025, 06/05/20 Influenza Vaccine Completed 09/28/2025, , 08/17/2023, Additional history exists HIB Vaccines [...] Procedure Name Priority Date/Time Associated Diagnosis Comments HEMOGLOBIN A1C Routine 09/28/2025 10:18 AM EST Medicare annual wellness visit, subsequent Type 2 diabetes mellitus without complication, without long-term current use of insulin ([facility] V24, [facility] V28) Benign essential hypertension Gastroesophageal reflux disease, unspecified whether esophagitis present Anxiety and depression Coronary artery disease involving [place] heart without angina pectoris, unspecified vessel or lesion type COMPREHENSIVE METABOLIC PANEL Routine 09/28/2025 10:18 AM EST Medicare annual wellness visit, subsequent Type 2 diabetes mellitus without complication, without long-term current use of insulin (CMS/[facility] V24, CMS/[facility] V28) Benign essential hypertension Gastroesophageal reflux disease, unspecified whether esophagitis present Anxiety and depression Coronary artery disease involving [place] heart without angina pectoris, unspecified vessel or lesion type MICROALBUMIN CREATININE URINE RATIO Routine 02/05/2025 3:38 PM EDT Primary hypertension Hyperlipidemia, unspecified hyperlipidemia type Type 2 diabetes mellitus without complication, without long-term current use of insulin ([facility] V24, [facility] V28) LIPID PANEL WITH REFLEX TO DIRECT LDL Routine 02/05/2025 3:09 PM EDT Primary hypertension Hyperlipidemia, unspecified hyperlipidemia type Type 2 diabetes mellitus without complication, without long-term current use of insulin ([facility] V24, [facility] V28) DEPRESSION SCREENING Routine 06/05/2024 DIABETES EYE EXAM Routine 11/04/2023 FALLS RISK ASSESSMENT Routine 01/05/2023 DIABETES FOOT EXAM Routine 01/05/2023 COLONOSCOPY Routine 09/02/2018 HEPATITIS C SCREENING Routine 03/10/2017 from Last 3 Months or Most Recently Relevant to Health Maintenance Results * (ABNORMAL) Hemoglobin A1c (09/28/2025 10:18 AM EST) Hemoglobin A1C 7.2(H) <6.5 % LAB CHEMISTRY METHOD 09/28/2025 12:36 PM EST [facility] Mean Bld Glu Estim. 160 mg/dL LAB CHEMISTRY METHOD 09/28/2025 12:36 PM EST [facility] Blood Venous blood specimen / Unknown Venipuncture / Unknown 09/28/2025 10:18 AM EST 09/28/2025 10:18 AM EST us Catherine Hairston MD LAB BLOOD ORDERABLES F inal Result [facility] [address] [place] [address], * (ABNORMAL) Comprehensive metabolic panel (09/28/2025 10:18 AM EST) Sodium 135 133 - 145 mmol/L LAB CHEMISTRY METHOD 09/28/2025 1:43 PM [facility] Potassium 4.0 3.5 - 5.5 mmol/L LAB CHEMISTRY METHOD 09/28/2025 1:43 PM [facility] Chloride 100 96 - 110 mmol/L LAB CHEMISTRY METHOD 09/28/2025 1:43 PM [facility] CO2 29 21 - 32 mmol/L LAB CHEMISTRY METHOD 09/28/2025 1:43 PM [facility] Anion Gap 6 3 - 11 LAB CHEMISTRY METHOD 09/28/2025 1:43 PM [facility] Glucose 142(H) 70 - 100 mg/dL LAB CHEMISTRY METHOD 09/28/2025 1:43 PM [facility] BUN 13 5 - 25 mg/dL LAB CHEMISTRY METHOD 09/28/2025 1:43 PM [facility] Creatinine 0.88 0.50 - 1.10 mg/dL LAB CHEMISTRY METHOD 09/28/2025 1:43 PM [facility] eGFR 68 >=60 mL/min/1. 73m2 LAB CHEMISTRY METHOD 09/28/2025 1:43 PM [facility] Comment:Calculation based on the Chronic Kidney Disease Epidemiology Collaboration (CKD-EPI) equation refit without adjustment for race. BUN/Creatinine Ratio 14.8 LAB CHEMISTRY METHOD 09/28/2025 1:43 PM [facility] Calcium 9.4 8.5 - 10.5 mg/dL LAB CHEMISTRY METHOD 09/28/2025 1:43 PM [facility] AST (SGOT) 24 10 - 42 unit/L LAB CHEMISTRY METHOD 09/28/2025 1:43 PM [facility] ALT (SGPT) 51 10 - 60 unit/L LAB CHEMISTRY METHOD 09/28/2025 1:43 PM [facility] Alkaline Phosphatase 112 42 - 121 unit/L LAB CHEMISTRY METHOD 09/28/2025 1:43 PM [facility] Total Protein 7.3 6.0 - 8.0 g/dL LAB CHEMISTRY METHOD 09/28/2025 1:43 PM [facility] Albumin 3.5 3.2 - 5.0 g/dL LAB CHEMISTRY METHOD 09/28/2025 1:43 PM [facility] Total Bilirubin 0.6 0.0 - 1.4 mg/dL LAB CHEMISTRY METHOD 09/28/2025 1:43 PM [facility] Blood Venous blood specimen / Unknown Venipuncture / Unknown 09/28/2025 10:18 AM EST 09/28/2025 10:18 AM EST us Catherine Hairston MD LAB BLOOD ORDERABLES F inal Result [facility] [address] [place] [address], * Microalbumin creatinine urine ratio (02/05/2025 3:38 PM EDT) Creatinine, Urine 29.0 mg/dL LAB CHEMISTRY METHOD 02/05/2025 7:10 PM EDT [facility] Microalb, Ur 5.0 0.0 - 29.0 mg/L LAB CHEMISTRY METHOD 02/05/2025 7:10 PM EDT [facility] Microalb/Creat Ratio 17 <30 mg/g creat LAB CHEMISTRY METHOD 02/05/2025 7:10 PM EDT [facility] Urine Urine specimen obtained by clean catch procedure / Unknown Non-blood Collection / Unknown 02/05/2025 3:38 PM EDT 02/05/2025 3:38 PM EDT [facility] LAB URINE ORDERABLES Final Re sult Performing Organization Address City/[facility]/ZIP Co de Phone Number [facility] [address] [place] [address], [place] [phone] * (ABNORMAL) Lipid panel with reflex to direct LDL (02/05/2025 3:09 PM EDT) Cholesterol 148 0 - 200 mg/dL LAB CHEMISTRY METHOD 02/05/2025 6:08 PM EDT [facility] Triglycerides 167(H) 0 - 150 mg/dL LAB CHEMISTRY METHOD 02/05/2025 6:08 PM EDT [facility] HDL 54 >=40 mg/dL LAB CHEMISTRY METHOD 02/05/2025 6:08 PM EDT [facility] LDL Calculated 61 0 - 100 mg/dL LAB CHEMISTRY METHOD 02/05/2025 6:08 PM EDT [facility] VLDL Cholesterol Kevin 33.4 mg/dL LAB CHEMISTRY METHOD 02/05/2025 6:08 PM EDT [facility] Non HDL Chol. (LDL+VLDL) 94 <145 mg/dL LAB CHEMISTRY METHOD 02/05/2025 6:08 PM EDT [facility] Chol/HDL Ratio 2.7 0.0 - 4.4 LAB CHEMISTRY METHOD 02/05/2025 6:08 PM EDT [facility] Blood Venous blood specimen / Unknown Venipuncture / Unknown 02/05/2025 3:09 PM EDT 02/05/2025 3:09 PM EDT [facility] LAB BLOOD ORDERABLES Final Re sult Performing Organization Address City/[facility]/ZIP Co de Phone Number [facility] [address] [place] [address], [place] [phone] * Depression Screening (06/05/2024) Pathologist [facility] Depression Screening Abstracted Historical Provider HEALTH MAINTENANCE Final Result * Diabetes Eye Exam (11/04/2023) [facility] Diabetes: Annual Retina Eye Exam Abstracted Historical Provider HEALTH MAINTENANCE Final Result * Falls Risk Assessment (01/05/2023) [facility] Falls Risk Assessment Abstracted Historical Provider HEALTH MAINTENANCE Final Result * Diabetes Foot Exam (01/05/2023) [facility] Diabetes: Annual Foot Exam Abstracted [facility] Provider HEALTH MAINTENANCE Final Result * Colonoscopy (09/02/2018) [facility] Colonoscopy No interpreta tion,abstr acted Anatomical Region Laterality Modality Other Historical Provider HEALTH MAINTENANCE Final Result * Hepatitis C Screening (03/10/2017) [facility] Hepatitis C Screening Abstracted [facility] Provider HEALTH MAINTENANCE Final Result from Last 3 Months or Most Recently Relevant to Health Maintenance Insurance MEDICARE [facility] Care Teams Rope Coiling Machine Operator Relationship Specialty Start Date End Date Catherine Hairston MD [address] [place] [phone] PCP - General 06/05/24
--- OUTSIDE RECORDS SUMMARY | 2025-10-08 14:04 | XMS_ITS ---
Author Name [facility] Organization Unknown Care Team Organization Name Specialty Phone Email Start Date End Da te [facility] ACO 07/04/2025 [facility] Shannon Llamas Primary Care 01/20/2023 [facility] Termed, PROVIDER Primary Care 09/22/202206/15
== END 2025-10-08 11:25 | disposition home or self-care (01) ==
LOC: HO.HPS 10:58
PROVIDERS: PCP Family Medicine; Visit Provider Hospitalist
DX: R05.3 Chronic cough (principal); J84.9 Interstitial pulmonary disease, unspecified; R91.1 Solitary pulmonary nodule
CPT/HCPCS: 99214

== ENCOUNTER → 2025-10-08 10:57 | Outpatient (BNVA) | payer MEDICARE, SELFPAY | PROVIDERS: PCP Family Medicine; Visit Provider Hospitalist | DX: R05.3 Chronic cough (principal); R91.1 Solitary pulmonary nodule; J84.9 Interstitial pulmonary disease, unspecified; Z87.891 Personal history of nicotine dependence | CPT/HCPCS: 99212 ==